=== PATIENT | male | born 1965 | race Caucasian/White ===

== ENCOUNTER 2018-10-15 19:04 | Inpatient (IN) | payer BC ==
[~2018-10-15 19:04] MED LIST: ISOVUE-370 76%-LOCM 1 ML ONE
[2018-10-15 19:47] LABS: #Basophils 0.1 thou/uL (0.0-0.2); #Eosinphils 0.4 thou/uL (0.0-0.7); #Lymphocytes 1.7 thou/uL (1.20-3.40); #Monocytes 1.1 thou/uL (0.11-0.59); #Neutrophils 9.1 thou/uL (1.40-6.50); %Eosinophils 3.6 % (0.0-10.0); %Lymphocytes 13.5 % (21.0-51.0); %Monocytes 8.5 % (0.0-10.0); %Neutrophils 73.4 % (42.0-75.0); Mean Corpuscular HGB CONC 31.9 g/dL (32.0-36.0); Mean Corpuscular Hemoglobin 26.5 pg (27.0-31.0); Mean Platelet Volume 7.4 fL (7.4-10.4); Platelet Count 469 thou/uL (130-400); RBC Distribution Width 12.3 % (11.5-14.5); Red Blood Cell (RBC) Count 4.15 mill/uL (4.70-6.10); White Blood Cell (WBC) Count 12.3 thou/uL (4.8-10.8)
[2018-10-15 20:04] LABS: ALT (SGPT) 71 U/L (8-55); AST (SGOT) 84 U/L (5-34); Alkaline Phosphatase 68 U/L (40-150); Anion Gap 16 mmol/L (10-20); BUN (Urea Nitrogen) 43 mg/dL (8.4-25.7); Bilirubin, Total 0.5 mg/dL (0.2-1.2); CK (CPK) 58 U/L (30-200); Calc. Creatinine Clearance 0 mL/min (70-130); Carbon Dioxide 29 mmol/L (22-29); Chloride 95 mmol/L (98-107); Estimated GFR-MDRD 22; Globulin 3.4 g/dL (2.4-3.5); Glucose 72 mg/dL (70-105); Lipase 13 U/L (8-78); Potassium 4.6 mmol/L (3.5-5.1); Protein, Total 7.4 g/dL (6.0-8.3); Sodium 135 mmol/L (136-145)
--- NOTE | 2018-10-15 20:25 | RAD ---
CHEST ONE VIEW: Indication: Chest pain. FINDINGS: There is moderate right pleural effusion with right basilar airspace opacity. There is subsegmental v olume loss within the right upper lobe. Left lung is clear. Heart size is normal. No acute osseous ab normality is evident. IMPRESSION: Right basilar airspace opacity with right sided pleural effusion. Recommend correlation for pneumonia . Left lung is clear. There is subsegmental volume loss within the right upper lobe. POS: H
[2018-10-15 20:35] LABS: CKMB 1.2 ng/mL (0-6.6)
[2018-10-15 20:39] LABS: Prothrombin Time 13.5 SEC (12.0-14.7)
[2018-10-15 20:41] LABS: PTT 21.7 SEC (22.9-36.1)
--- NOTE | 2018-10-15 20:47 | CT ---
CTA OF THE THORAX UTILIZING IV CONTRAST AND 3D REFORMATTED IMAGING: Indication: Shortness of breath, right leg swelling. Comparison: None. FINDINGS: There is a moderate to large right pleural effusion. There is partially occlusive thrombus seen within lobar and segmental ranches of the right lower lobe and right middle lobe. There is volume loss within the right lung base. There is extensive adenopathy of the mediastinum. There is enlargement of internal mammillary lymph n odes. There are prevascular lymph nodes seen measuring 1.3 cm. There is a left hilar lymph node measu ring 1.4 cm. Subcarinal lymph node is seen measuring 1.4 cm. There is an enlarged right pericardial l ymph node measuring 5.6 x 4.1 cm. There is extensive adenopathy of the retrocrural space. There is ex tensive adenopathy of the upper retroperitoneum. There is a large soft tissue mass involving the superior pole of the right kidney measuring 6.3 cm. T here is extensive soft tissue mass within the posterior right perirenal space displacing the right ki dney anteriorly. There is mass like prominence of lymph nodes seen surrounding the aorta, IVC, and mesenteric root wit hin the upper abdomen. The spleen is enlarged measuring 14 cm. Suspected focal fatty infiltration is seen near the falciform ligament. A small subcentimeter hypoden sity is seen within the right hepatic dome, suspicious for a small cyst. This measures 9 mm in size. No acute osseous abnormality is evident. IMPRESSION: 1. Partially occlusive lobar and segmental pulmonary emboli of the right lower lobe and right middle lobe without evidence of right heart dysfunction. There is a moderate right pleural effusion. 2. Extensive adenopathy of the thorax and upper abdomen. There is suspected soft tissue mass involvin g the superior pole of the right kidney. There is extensive soft tissue density seen within the poste rior right perirenal space. The soft tissue mass may reflect lymphomatous involvement of the right ki dney; however, a primary renal malignancy with diffuse metastatic disease cannot be entirely excluded . Discussion was held with Dr. Salas in the Emergency Department. Would recommend a delay of 24 hours to allow the performance of a multiphase CT examination of the abdomen and pelvis with and without I V contrast to further assess the presence of a primary right renal lesion or possibly lymphomatous in volvement of the perirenal space and right kidney. This can be performed as a CT of the abdomen and p karla with and without contrast utilizing a three phase examination. (Noncontrast, arterial, nephrogr aphic and delayed phase). 3. Splenomegaly. 4. Right hepatic lobe cyst and fatty infiltration of the liver. Code CR POS: [facility]
[2018-10-15] MEDS ORDERED: Furosemide 40 MG/4 ML VIAL ONE (20:49)
[2018-10-15] MEDS ORDERED: Morphine 4 MG/ML VIAL ONE (20:51)
[2018-10-15 20:54] LABS: Calcium Greater than 17.0 mg/dL (7.8-10.44)
[2018-10-15] MEDS ORDERED: Heparin 25,000 units/D5W 500 ML ONE (21:23)
[2018-10-15] MEDS ORDERED: Calcitonin,Salmon,Synthetic 200 UNITS/ML SC SCH (21:30)
[2018-10-15] MEDS ORDERED: Zoledronic Acid 4 MG in Sodium Chloride 0.9% 100 ML IVPB SCH (21:30)
[2018-10-15] MEDS ORDERED: Heparin 1,000 UNITS/ML VIAL ONE ×2 (21:51→21:52)
--- NOTE | 2018-10-15 23:24 | ULT ---
DOPPLER VENOUS ULTRASOUND OF THE RIGHT LOWER EXTREMITY: Indication: Edematous changes of the right lower extremity. TECHNIQUE: Linares scale, color Doppler, and vascular duplex with spectral analysis was performed of the deep venou s structures of both lower extremities. The common femoral vein, superficial femoral vein, popliteal vein, posterior tibial vein, proximal greater saphenous, and proximal profunda veins were assessed bi laterally. FINDINGS: There is normal compression, flow, and augmentation seen within the deep venous structures of the rig ht lower extremity. IMPRESSION: No evidence of DVT within the right lower extremity. POS: MARY
--- NOTE | 2018-10-16 01:01 | CON ---
DATE OF CONSULTATION: 10/15/2018 REASON FOR CONSULTATION: Severe hypercalcemia. IMPRESSION: 1. Severe hypercalcemia. 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 2. Acute kidney injury related to problem #1. 3. Deep venous thrombosis with pulmonary embolism, all related to potential malignant activity. PLAN: 1. The main focus at this point will be to bring the calcium down. Therefore, the patient received zoledronic acid as well as calcitonin and now, we will continue with aggressive IV fluid resuscitation with less discomfort. 2. Renally dose all medications for low GFR. 3. Avoid potentially nephrotoxic agents. 4. Further management to be dependent on the clinical course. HISTORY OF PRESENT ILLNESS: A 53-year-old gentleman with no significant past medical history, in fact has no visiting physicians, who kept complaining of back pain that has not responded well to intrathecal injection. Also, the patient developed nausea, abdominal discomfort, and slowing of speech. The patient has been constipated for about 2 to 3 days now. As a result of these findings, decision was taken to bring the patient, where clinical evaluation revealed calcium greater than 17, leg swelling, CAT scan consistent with pulmonary embolism. Decision was then taken to involve Renal in the management of this case. PAST MEDICAL HISTORY: Pretty much unremarkable. MEDICATIONS: None. ALLERGIES: NO KNOWN DRUG ALLERGIES. FAMILY HISTORY: No family history of kidney disease. SOCIAL HISTORY: The patient is . No alcohol. No tobacco. No illicit drug use. REVIEW OF SYSTEMS: As documented in the body of the history. All other systems were reviewed and found not to be significantly related to presenting illness. LABORATORY INVESTIGATION: Significant for calcium recorded as greater than 17, creatinine of 2.96, BUN of 43. SUMMARY: A 53-year-old, otherwise healthy gentleman, who presented here with leg swelling, slurred speech and shortness of breath, now been diagnosed with severe hypercalcemia. Thank you for this consultation. We will follow with you. Job ID: [id number]
[2018-10-16 01:19] LABS: ALT (SGPT) 68 U/L (8-55); AST (SGOT) 75 U/L (5-34); Albumin 3.6 g/dL (3.5-5.0); Alkaline Phosphatase 62 U/L (40-150); Anion Gap 16 mmol/L (10-20); BUN (Urea Nitrogen) 41 mg/dL (8.4-25.7); Bilirubin, Total 0.4 mg/dL (0.2-1.2); Calc. Creatinine Clearance 39 mL/min (70-130); Calcium 15.6 mg/dL (7.8-10.44); Carbon Dioxide 25 mmol/L (22-29); Chloride 98 mmol/L (98-107); Estimated GFR-MDRD 23; Globulin 3.1 g/dL (2.4-3.5); Glucose 70 mg/dL (70-105); Potassium 4.4 mmol/L (3.5-5.1); Protein, Total 6.7 g/dL (6.0-8.3); Sodium 135 mmol/L (136-145)
[2018-10-16] MEDS ORDERED: Morphine 4 MG/ML VIAL SLOW IVP PRN (02:32)
[2018-10-16] MEDS: Sodium Chloride 0.9% 1,000 ML IV SCH ×7 (03:45→21:46)
[2018-10-16] MEDS ORDERED: Bisacodyl 10 MG SUPP PR PRN (05:45)
[2018-10-16] MEDS ORDERED: Calcium Carbonate 500 MG ChewTAB PO PRN (05:47)
[2018-10-16] MEDS ORDERED: Ondansetron ODT 4 MG TAB PO PRN (05:47)
[2018-10-16] MEDS ORDERED: Heparin 10,000 UNITS/ 10 ML VIAL SLOW IVP SCH (06:00)
[2018-10-16 06:17] LABS: ALT (SGPT) 73 U/L (8-55); AST (SGOT) 77 U/L (5-34); Albumin 3.6 g/dL (3.5-5.0); Alkaline Phosphatase 63 U/L (40-150); Anion Gap 17 mmol/L (10-20); BUN (Urea Nitrogen) 42 mg/dL (8.4-25.7); Bilirubin, Total 0.4 mg/dL (0.2-1.2); Calc. Creatinine Clearance 38 mL/min (70-130); Carbon Dioxide 26 mmol/L (22-29); Chloride 96 mmol/L (98-107); Estimated GFR-MDRD 23; Globulin 3.3 g/dL (2.4-3.5); Glucose 90 mg/dL (70-105); Potassium 4.3 mmol/L (3.5-5.1); Protein, Total 6.9 g/dL (6.0-8.3); Sodium 135 mmol/L (136-145)
--- NOTE | 2018-10-16 06:19 | HP ---
PRIMARY CARE PHYSICIAN: Briana Clifford MD CHIEF COMPLAINT: Low back pain. HISTORY OF PRESENT ILLNESS: The patient is a 53-year-old male with no significant past medical history. He presented to the emergency room with above complaints. Over the last two months, the patient has on and off low back pain that is progressively getting worse. He was evaluated by Dr. Powell, Neurosurgery, as well as Pain Clinic. His pain progressively got worse. Today, he was found to have slurriness of speech along with confusion, dizziness, and right lower extremity swelling. He was brought in by his family due to this reason. He also gets short of breath on moderate exertion over the last 2 to 3 weeks. He had some headache, which has resolved. PAST MEDICAL HISTORY: Reviewed with the patient and none. PAST SURGICAL HISTORY: Reviewed with the patient and none. SOCIAL HISTORY: The patient currently lives at home with his family. No smoking, alcohol, or drug use, FAMILY HISTORY: Negative for heart disease. REVIEW OF SYSTEMS: All other review of systems were reviewed and were found negative. PHYSICAL EXAMINATION: VITAL SIGNS: In the emergency room showed temperature 97.9, respirations 20, pulse of 133, blood pressure of 200/114, O2 saturation 92% on room air. GENERAL: A 53-year-old male, in no apparent distress. Mentation slowly improving. His speech is clearing. HEENT: Head, atraumatic, normocephalic. Sclerae anicteric. Moist mucous membranes. No oral lesion. NECK: Supple. No JVD appreciated. No carotid bruit. LUNGS: Clear to auscultation bilaterally with diminished air entry at bilateral bases. HEART: S1 and S2 present. Regular rate and rhythm. Tachycardic. No heaves or pulsation. ABDOMEN: Soft with mild tenderness over the right upper quadrant. No rebound or guarding. No costovertebral angle tenderness. EXTREMITIES: Right ankle swelling compared to the other. No calf tenderness. SKIN: Warm and dry. LYMPH NODE: No palpable lymph nodes in the neck. PERIPHERAL VASCULAR: Radial pulses palpable bilaterally. MUSCULOSKELETAL: No joint swelling, or tenderness. LABORATORY FINDINGS: Calcium greater than 17 with sodium 135, potassium 4.6, chloride 95, bicarb 29, BUN 43, creatinine 2.96, baseline creatinine unavailable. Troponin 0.031, CK-MB 1.2. WBC 12.3 with hemoglobin 11, hematocrit 34.5, platelet 469. PT/INR in normal range. D-dimer was 3.98. CT angiogram of the chest showed pulmonary embolism in the right lower lobe and the right middle lobe without evidence of right heart dysfunction. There was moderate right-sided pleural effusion. There was extensive adenopathy of thorax and upper abdomen with a suspected soft tissue mass involving the superior pole of the right kidney. EKG by my review showed sinus tachycardia. Chest x-ray by my review showed right-sided pleural effusion. IMPRESSION: 1. Toxic metabolic encephalopathy due to severe hypercalcemia. 2. Acute kidney injury secondary to toxic metabolic encephalopathy. 3. Pulmonary embolism. 4. Sinus tachycardia due to dehydration. 5. Elevated troponins due to demand ischemia. 6. Abnormal LFTs. 7. Anemia, normocytic. 8. Elevated D-dimer. 9. Obesity with a BMI of 33.3. 10. Constipation due to hypercalcemia. 11. Hyponatremia. 12. Low back pain of 3 months' duration. 13. Soft tissue mass in the superior pole of the right kidney. 14. Splenomegaly. 15. Right-sided pleural effusion. PLAN: The patient will be monitored in the intermediate care unit. We will continue IV normal saline at 200 mL an hour. The patient has been seen by Nephrology, Dr. Valdes. We will continue Lasix 40 mg daily per Nephrology. He received zoledronic acid 4 mg in the ER along with calcitonin. We will give him another dose of calcitonin. We will recheck labs later today. Treat constipation. We will add antihypertensives. Oncology consultation. Plan of care was discussed with the patient and the family at the bedside. They stated understanding. Job ID: [id number]
[2018-10-16 06:23] LABS: Calcium 15.2 mg/dL (7.8-10.44)
[2018-10-16 07:32] LABS: Hemoglobin 9.8 g/dL (14.0-18.0); Platelet Count 436 thou/uL (130-400)
--- NOTE | 2018-10-16 08:02 | CT ---
CT OF THE BRAIN WITHOUT CONTRAST: INDICATION: Slurred speech, confusion, dizziness. COMPARISON: None. FINDINGS: No acute infarct, hemorrhage, or hydrocephalus is present. No midline shift is evident. Mastoid air cells and paranasal sinuses are clear. The skull is intact. IMPRESSION: No acute intracranial abnormality. POS: BH
[2018-10-16] MEDS: Furosemide 40 MG/4 ML VIAL SLOW IVP SCH (08:26)
[2018-10-16] MEDS: Amlodipine 5 MG TAB PO SCH (08:27)
[2018-10-16] MEDS ORDERED: Senokot S 8.6-50 MG TAB PO SCH (09:00)
[2018-10-16] MEDS ORDERED: Polyethylene Glycol 3350 17 GM Packet PO SCH (09:00)
[2018-10-16] MEDS: Ondansetron PF 4 MG/2 ML Vial IVP PRN (09:54)
[2018-10-16] MEDS ORDERED: Calcitonin,Salmon,Synthetic 200 UNITS/ML SC SCH ×2 (10:00→11:30)
[2018-10-16] MEDS: Heparin 25,000 units/D5W 500 ML IVPB SCH (10:47)
[2018-10-16] MEDS: Labetalol HCl 100 MG/20 ML VIAL SLOW IVP PRN ×2 (10:50→21:47)
[2018-10-16] MEDS ORDERED: Magnesium Citrate 300 ML BOT PO SCH (13:30)
--- NOTE | 2018-10-16 17:07 | MRI ---
BRAIN MRI WITHOUT CONTRAST: Reference made to head CT same date. Indication: Altered mental status. History of renal cancer. FINDINGS: Ventricular system is normal in size. No mass effect, midline shift, or acute territorial infarction. Motion artifact is present which limits evaluation. No parenchymal hemorrhagic susceptibility is pre sent. The visualized skull base flow voids are grossly patent within limitations. IMPRESSION: No acute territorial infarction or mass effect. POS: AM[facility]
--- NOTE | 2018-10-16 17:24 | ULT ---
LEFT LOWER EXTREMITY VENOUS DUPLEX EXAM: Technique: Deep veins of left lower extremity evaluated with spectral analysis and color doppler. Indications: Left lower extremity pain and edema. FINDINGS: Veins of the left lower extremity show normal blood flow and compression. No evidence of DVT. IMPRESSION: Normal left extremity venous duplex exam. POS: MARY
[2018-10-16 17:28] LABS: Anion Gap 16 mmol/L (10-20); BUN (Urea Nitrogen) 43 mg/dL (8.4-25.7); Calc. Creatinine Clearance 41 mL/min (70-130); Carbon Dioxide 25 mmol/L (22-29); Chloride 97 mmol/L (98-107); Estimated GFR-MDRD 24; Glucose 111 mg/dL (70-105); Potassium 4.3 mmol/L (3.5-5.1); Sodium 134 mmol/L (136-145); Uric Acid 12.6 mg/dL (3.5-7.2)
[2018-10-16 17:34] LABS: Calcium 13.5 mg/dL (7.8-10.44)
--- NOTE | 2018-10-16 18:49 | PDOC.PN ---
- Subjective Encounter Start Date: 10/16/18 Encounter Start Time: 18:49 Subjective: Complaining of constipation. SOB and poor appetite persists. -: Still on heparin infusion. - Objective Resuscitation Status - Order Detail: 10/16/18 05:47 Resuscitation Status Routine Resuscitation Status: FULL: Full Resuscitation Vital Signs & Weight: Vital Signs (12 hours) Temp Pulse BP Pulse Ox 10/16/18 12:00 98.4 F 10/16/18 10:50 113 H 182/119 H 10/16/18 08:27 113 H 148/118 H 10/16/18 08:00 98.8 F 93 L 10/16/18 07:31 94 L Weight Admit Weight 206 lb Weight 206 lb 5.643 oz Most Recent Monitor Data Heart Rate from ECG 119 NIBP 151/104 NIBP BP-Mean 119 Respiration from ECG 22 SpO2 99 I&O: 10/15/18 10/16/18 10/17/18 06:59 06:59 06:59 Intake Total 1170 1680 Output Total 400 1915 Balance 770 -235 Result Diagrams: 10/16/18 06:59 10/16/18 16:55 Phys Exam - Physical Examination HEENT: PERRLA, moist MMs Neck: supple, full ROM Decrease air entry right base. Regular but tachycardic Gastrointestinal: non-tender full or enlarged. moderate bilateral leg edema Neurological: non-focal, moves all 4 limbs Dx/Plan (1) Leg DVT (deep venous thromboembolism), acute Code(s): I82.409 - ACUTE EMBOLISM AND THOMBOS UNSP DEEP VN UNSP LOWER EXTREMITY Status: Acute (2) Acute pulmonary embolism Code(s): I26.99 - OTHER PULMONARY EMBOLISM WITHOUT ACUTE COR PULMONALE Status : Acute (3) Hypercalcemia of malignancy Code(s): E83.52 - HYPERCALCEMIA Status: Acute (4) DEVIKA (acute kidney injury) Code(s): N17.9 - ACUTE KIDNEY FAILURE, UNSPECIFIED Status: Acute (5) Pleural effusion on right Code(s): J90 - PLEURAL EFFUSION, NOT ELSEWHERE CLASSIFIED Status: Acute (6) Right kidney mass Code(s): N28.89 - OTHER SPECIFIED DISORDERS OF KIDNEY AND URETER Status: Acute (7) Retroperitoneal lymphadenopathy Code(s): R59.0 - LOCALIZED ENLARGED LYMPH NODES Status: Acute (8) Mediastinal adenopathy Code(s): R59.0 - LOCALIZED ENLARGED LYMPH NODES Status: Acute (9) Acute anoxic encephalopathy Code(s): G93.1 - ANOXIC BRAIN DAMAGE, NOT ELSEWHERE CLASSIFIED Status: Acute (10) Physical deconditioning Code(s): R53.81 - OTHER MALAISE Status: Acute (11) Metastatic cancer Code(s): C79.9 - SECONDARY MALIGNANT NEOPLASM OF UNSPECIFIED SITE Status: Acute - Plan Continue IV heparin, IVF and lasix -: Give dulcolax suppository. Monitor CMP and CBC -: Analgesic and antiemetic as needed -: Consult Pulm for possinle thoracentessis and or bronchoscopy with biopsy -: Oncology and Nephrology following. * .
[2018-10-16] MEDS ORDERED: Bisacodyl 10 MG SUPP PR SCH (19:00)
--- NOTE | 2018-10-16 19:39 | PRG ---
DATE OF SERVICE: 10/16/2018 SUBJECTIVE: The patient is seen and examined. Sleepy, but arousable. Noted with the following vital signs. OBJECTIVE: VITAL SIGNS: Heart rate of 119 to 132, respiratory rate of 22. GENERAL: Hemodynamically stable. HEENT: Reveal some dry mucosa. CARDIOVASCULAR SYSTEM: First and second heart sounds were heard. RESPIRATORY SYSTEM: Clear to auscultation. DIGESTIVE SYSTEM: Reveals slightly distended abdomen. EXTREMITIES: Show right-sided edema. LYMPHATICS: No peripheral lymphadenopathy. LABORATORY INVESTIGATION: Showed a calcium level that has gone down to 15.2, creatinine 2.9, and BUN of 42. IMPRESSION: 1. 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 2. Acute kidney injury, likely related to hypercalcemia defect. Contrast nephropathy not yet manifested. PLAN: 1. We will continue with current renal supportive measures. 2. Continue IV fluid with normal saline and Lasix. 3. Further management will be dependent on the clinical course as well as further findings. We will continue to renally dose all medications for low GFR and avoid potentially nephrotoxic agents in this patient. Job ID: [id number]
[2018-10-16] MEDS: Acetaminophen 325 MG TAB PO PRN (21:50)
--- NOTE | 2018-10-16 22:28 | CON ---
DATE OF CONSULTATION: REASON FOR CONSULT: Lymphadenopathy and renal mass. HISTORY OF PRESENT ILLNESS: Mr. Tapia is a 53-year-old gentleman with no medical history, who presented to the emergency room with complaints of low back pain, confusion. His pain started in mid August. He has been evaluated by Neurosurgery and Pain Clinic in the outpatient setting. Over the past 2 to 3 days, he began to have more confusion and has been dropping things. He has also complained of shortness of breath. In the emergency room, he underwent a chest x-ray, which showed a right-sided pleural effusion. He then underwent a chest and thorax CT angiogram, which showed a moderate to large right pleural effusion, a partially occlusive thrombus within the lobar and segmental branches of the right lower lobe and right middle lobe. There was extensive adenopathy of the mediastinum. Left hilar lymph node measuring 1.4 cm, subcarinal lymph node measuring 1.4 cm, enlarged right pericardial lymph node measuring 5.6 x 4.1 cm. There was adenopathy of the upper retroperitoneum. There was a large soft tissue mass involving the superior pole of the right kidney measuring 6.3 cm. There was extensive soft tissue mass within the posterior right perirenal space displacing the right kidney anterior. There were mass like prominence of lymph nodes around the aorta, IVC, and mesenteric root within the upper abdomen. His spleen measured 14 cm. The patient was admitted for pulmonary emboli and started on heparin drip. The patient's calcium in the emergency room was greater than 17. He received a dose of Zometa and calcitonin. He was started on IV fluids. His creatinine was elevated at 2.96. We were asked to see the patient with assistance with diagnosis. PAST MEDICAL HISTORY: Back pain over the last several months. PAST SURGICAL HISTORY: None. ALLERGIES: NO KNOWN DRUG ALLERGIES. HOME MEDICATIONS: 1. Tylenol No. 3 p.r.n. 2. Gabapentin 300 mg daily. 3. Metaxalone 800 mg t.i.d. FAMILY HISTORY: Grandmother with breast cancer. Uncle with colon cancer. SOCIAL HISTORY: He is . Has several children. No smoking, alcohol, or illicit drug use. REVIEW OF SYSTEMS: A 10-point review of systems is positive for confusion and shortness of breath. PHYSICAL EXAMINATION: VITAL SIGNS: Temperature is 98.4, pulse is 114, respiratory rate 22, blood pressure is 182/119. GENERAL: Well-developed, well-nourished male, in no acute distress. HEENT: Normocephalic, atraumatic. Pupils equal and reactive to light. NECK: Supple. CARDIOVASCULAR: Regular rate and rhythm. LUNGS: Clear. ABDOMEN: Soft, nontender. Bowel sounds are positive. EXTREMITIES: He has 1+ bilateral lower extremity edema. SKIN: No rash. HEMATOLOGICAL: No petechiae or purpura. NEUROLOGICAL: The patient has right lower extremity weakness. PSYCHIATRIC: The patient is oriented. PERTINENT LABS AND X-RAYS: Current WBCs are 12.3, hemoglobin 9.8, hematocrit 30.1, platelet count is 436,000. He has 73% neutrophils, 13% lymphocytes. PT is 13.5 , INR is 1.0, and PTT is 21.7. Sodium is 135, potassium 4.3, chloride 96, CO2 is 26, BUN is 42, creatinine 2.93, calcium is 15.2, total bilirubin is 0.4, AST 77, ALT 73, alkaline phosphatase is 63, CK-MB is 1.2. BNP is 14.2. Serum total protein is 6.9, albumin 3.6, globulin 3.3, and lipase is 13. ASSESSMENT: 1. Severe hypercalcemia. 2. Toxic metabolic encephalopathy. 3. Pulmonary embolism. 4. Acute kidney injury. 5. Soft tissue mass of the right kidney. 6. Extensive lymphadenopathy of the chest and abdomen. DISCUSSION: The patient's high calcium has improved from greater than 17 to 15.2. We will continue IV fluids and calcitonin. He had only received Zometa every 7 days. We will monitor that very closely. His mental status has improved mildly with improvement of his calcium. There was no evidence of metastatic disease on his brain CT, but agree with MRI of his brain to further evaluate and rule out metastatic disease. The patient's acute kidney injury precludes any contrast to further evaluate the kidney mass. He will be anticoagulated with IV heparin over the next several days and ultimately a tissue biopsy will be obtained from both the kidneys and mediastinal lymphadenopathy. I will check a flow cytometry, uric acid, LDH, and a PTH to be complete. Further recommendations will be based on the results of all these testing. The case was discussed with Dr. Vargas. Thank you for the consult. Job ID: [id number] [facility]
--- NOTE | 2018-10-16 22:33 | CON ---
DATE OF CONSULTATION: 10/16/2018 HISTORY OF PRESENT ILLNESS: Glenn Tapia is a 53-year-old male who has been dealing with back pain since beginning of the year. He presented with confusion, it has been going on for several days with calcium like greater than 17. His calcium trending downward. I was consulted because of his presence in the ICU. Unfortunately, he has also been found to have a right-sided pleural effusion and evidence of thromboembolic disease on the CT pulmonary angiogram as well as evidence of mediastinal and abdominal lymphadenopathy and what appears to be a right superior pole renal mass. He had a negative brain CT, but this was without contrast. His does not want him to get any more contrast because of his renal insufficiency and explained to her that we will avoid it for now. He has been healthy up until this illness and was actually snow skiing at the beginning of the year. PAST MEDICAL HISTORY: Otherwise, unremarkable. FAMILY HISTORY: Negative for lung disease in early age. SOCIAL HISTORY: He is not a smoker, not a daily drinker. He has no history of weight loss , gross hematuria. REVIEW OF SYSTEMS: 10 point review of systems completed, otherwise negative. PHYSICAL EXAMINATION: GENERAL: He presented with confusion, it has been going on for several days with calcium like greater than 17. VITAL SIGNS: Heart rate 114, respiratory rates in the 20s, oximetry is 92%. HEENT: Pupils are equal. Sclerae is anicteric. LYMPH: I do not palpate cervical, supraclavicular, or axillary lymphadenopathy. LUNGS: Remarkable for decreased breath sounds at his left and right base. HEART: Regular rhythm. S1 and S2 are normal. ABDOMEN: Soft and nontender without guarding. EXTREMITIES: Without clubbing, cyanosis, or edema. LABORATORY DATA: White count is 12.3 yesterday, hemoglobin 9.8 today, and platelets 436. Sodium 135, potassium 4.3, chloride 96, bicarb 26, BUN 42, and creatinine 2.93. Calcium is down to 15.2. AST 77 and ALT 73. IMPRESSION: Thromboembolic disease. I suppose this could be a tumor embolus if he does have a renal carcinoma, but probably it is more likely that this is simply a deep venous thrombosis with pulmonary embolism. With this severe hypercalcemia, this has to be a malignant process. It is unusual for lymphoma to cause hypercalcemia, but I suppose it is possible. At this point in time, we need to continue with hydration, allow his calcium to come down and continue to anticoagulate him with heparin. Once he has been anticoagulated for several days, we can consider some type of surgical biopsy. I have on-call to consult the Oncology, they will come by today and I have also logistics solution manager to consult CT surgery for recommendations. It would be easy enough to do a thoracentesis at the bedside, but we would have to wait 2 days for the pathology and I suspect the more tissue we get the better off will be as far as making treatment recommendations. His pleural effusion , also could be related to thromboembolic disease or could be related to an undiagnosed problem with his heart. Since he is being anticoagulated, I would recommend that we do an MRI of his brain with and without contrast. We hate to continue anticoagulation if he has large brain metastases that might be predisposed to hemorrhage. CRITICAL CARE TIME: 45 minutes, I met with family and answered all their questions. Job ID: [id number] NIKKO
[2018-10-17] MEDS: Heparin 25,000 units/D5W 500 ML IVPB SCH (01:10)
[2018-10-17] MEDS: Sodium Chloride 0.9% 1,000 ML IV SCH ×5 (01:10→21:05)
--- NOTE | 2018-10-17 02:15 | CON ---
DATE OF CONSULTATION: 10/16/2018 REASON FOR CONSULTATION: Evaluate the patient with adenopathy, hypercalcemia, and mental status changes. HISTORY OF PRESENT ILLNESS: Mr. Tapia is a 53-year-old gentleman who presented with mental status changes to the emergency department yesterday. He was found on CT scan to have a right pleural effusion. He also has a pulmonary embolus seen on CT angiogram of his chest. In addition, there was extensive adenopathy involving the paratracheal and subcarinal areas in his chest. He has either a renal mass or adenopathy around his right kidney. His presenting symptom was confusion. His calcium at the time of admission was 15.6. Most recent check, it is now 13.5 with medical treatment. He also complains of a 2-month history of back pain centrally located in his thoracic and lumbar spine. Venous ultrasound showed no deep venous thrombosis. Dr. Wilson called and asked me to look at him from the aspect of potentially performing a mediastinoscopy for mediastinal lymph node biopsy for diagnostic purposes. Currently, the patient is almost asleep when I arrived. He is fairly somnolent and falls asleep easily while we were talking. PAST MEDICAL HISTORY: None. PAST SURGICAL HISTORY: None. SOCIAL HISTORY: He does not use tobacco or alcohol. He is REVIEW OF SYSTEMS: Not performed due to the patient's somnolence. Most of the interview came through his PHYSICAL EXAMINATION: GENERAL: This is a well-developed, well-nourished male, resting in bed without complaint. VITAL SIGNS: His temperature is 98.4, heart rate is 110, blood pressure is 148/ 100. HEENT: Sclerae nonicteric. Pupils are equal and round bilaterally. NECK: Supple. There is no palpable adenopathy in his neck or his supraclavicular fossa. CHEST: Clear with depressed breath sounds in the right lower lung johnson. HEART: Rhythm is regular. ABDOMEN: Soft and nontender. EXTREMITIES: There is no edema. VASCULAR: Palpable carotid, radial, and femoral pulses bilaterally. RADIOLOGY: I have reviewed his CT scans and MRIs. Most recent MRI of the brain is negative. CT scan of the chest is as above. ASSESSMENT AND PLAN: Hypercalcemia with confusion in the face of right pleural effusion and adenopathy throughout his chest and upper abdomen, right renal mass. He also has back pain. Dr. Wilson and I have discussed his current situation. He is being treated with heparin for pulmonary embolus currently. Thoracentesis may be beneficial for diagnostic purposes initially. If it is felt that he needs a mediastinoscopy, this is certainly possible. He has 2 level 7 nodes which would be approachable via mediastinoscopy. Another option may be percutaneous biopsy of a vertebral body lesion if that is what is causing his back pain. Once he can lay still enough that we can get an MRI that would certainly help from a diagnostic standpoint. Job ID: [id number] [facility] NETWORKCarlota
[2018-10-17] MEDS ORDERED: Morphine 4 MG/ML VIAL SLOW IVP SCH (03:00)
[2018-10-17 03:52] LABS: #Basophils 0.1 thou/uL (0.0-0.2); #Eosinphils 0.2 thou/uL (0.0-0.7); #Lymphocytes 1.6 thou/uL (1.20-3.40); #Monocytes 1.1 thou/uL (0.11-0.59); #Neutrophils 10.7 thou/uL (1.40-6.50); %Basophils 0.6 % (0.0-1.0); %Eosinophils 1.4 % (0.0-10.0); %Lymphocytes 11.8 % (21.0-51.0); %Monocytes 8.1 % (0.0-10.0); %Neutrophils 78.2 % (42.0-75.0); Hemoglobin 8.9 g/dL (14.0-18.0); Mean Corpuscular HGB CONC 32.6 g/dL (32.0-36.0); Mean Corpuscular Hemoglobin 26.6 pg (27.0-31.0); Mean Corpuscular Volume 81.6 fL (78.0-98.0); Mean Platelet Volume 6.5 fL (7.4-10.4); Platelet Count 335 thou/uL (130-400); RBC Distribution Width 12.4 % (11.5-14.5); Red Blood Cell (RBC) Count 3.33 mill/uL (4.70-6.10); White Blood Cell (WBC) Count 13.7 thou/uL (4.8-10.8)
[2018-10-17 04:16] LABS: ALT (SGPT) 52 U/L (8-55); AST (SGOT) 39 U/L (5-34); Albumin 3.2 g/dL (3.5-5.0); Alkaline Phosphatase 54 U/L (40-150); Anion Gap 13 mmol/L (10-20); BUN (Urea Nitrogen) 41 mg/dL (8.4-25.7); Bilirubin, Total 0.4 mg/dL (0.2-1.2); Calc. Creatinine Clearance 44 mL/min (70-130); Calcium 11.9 mg/dL (7.8-10.44); Carbon Dioxide 26 mmol/L (22-29); Chloride 98 mmol/L (98-107); Estimated GFR-MDRD 26; Globulin 2.8 g/dL (2.4-3.5); Glucose 93 mg/dL (70-105); Sodium 133 mmol/L (136-145)
[2018-10-17] MEDS: Labetalol HCl 100 MG/20 ML VIAL SLOW IVP PRN (06:40)
--- NOTE | 2018-10-17 08:32 | PDOC.PN ---
- Subjective Encounter Start Date: 10/17/18 Encounter Start Time: 08:30 Subjective: Complqaining of persistent moderately severe back pain. -: mental status has improved greatly. -: has had several BM overnight. - Objective Resuscitation Status - Order Detail: 10/16/18 05:47 Resuscitation Status Routine Resuscitation Status: FULL: Full Resuscitation Vital Signs & Weight: Vital Signs (12 hours) Temp Pulse BP 10/17/18 07:13 97.8 F 10/17/18 06:40 99 183/111 H 10/17/18 03:51 97.6 F 10/17/18 00:00 98.6 F 10/16/18 21:47 115 H 190/104 H Weight Admit Weight 206 lb Weight 212 lb Most Recent Monitor Data Heart Rate from ECG 96 NIBP 188/86 NIBP BP-Mean 120 Respiration from ECG 19 SpO2 96 I&O: 10/16/18 10/17/18 10/18/18 06:59 06:59 06:59 Intake Total 1170 4808 Output Total 400 2565 Balance 770 2243 Result Diagrams: 10/17/18 03:43 10/17/18 03:43 Phys Exam - Physical Examination HEENT: PERRLA, moist MMs Neck: no JVD, supple fair air entry bilaterally. No distress Cardiovascular: RRR Gastrointestinal: soft, non-tender, no distention, positive bowel sounds moderate bilateral leg edema. No vertebral tenderness Neurological: non-focal, moves all 4 limbs Psychiatric: normal affect, A&O x 3 Dx/Plan (1) Acute pulmonary embolism Code(s): I26.99 - OTHER PULMONARY EMBOLISM WITHOUT ACUTE COR PULMONALE Status : Acute (2) Leg DVT (deep venous thromboembolism), acute Code(s): I82.409 - ACUTE EMBOLISM AND THOMBOS UNSP DEEP VN UNSP LOWER EXTREMITY Status: Acute (3) Hypercalcemia of malignancy Code(s): E83.52 - HYPERCALCEMIA Status: Acute (4) DEVIKA (acute kidney injury) Code(s): N17.9 - ACUTE KIDNEY FAILURE, UNSPECIFIED Status: Acute (5) Pleural effusion on right Code(s): J90 - PLEURAL EFFUSION, NOT ELSEWHERE CLASSIFIED Status: Acute (6) Right kidney mass Code(s): N28.89 - OTHER SPECIFIED DISORDERS OF KIDNEY AND URETER Status: Acute (7) Retroperitoneal lymphadenopathy Code(s): R59.0 - LOCALIZED ENLARGED LYMPH NODES Status: Acute (8) Mediastinal adenopathy Code(s): R59.0 - LOCALIZED ENLARGED LYMPH NODES Status: Acute (9) Acute anoxic encephalopathy Code(s): G93.1 - ANOXIC BRAIN DAMAGE, NOT ELSEWHERE CLASSIFIED Status: Acute Comment: Improved. seem to be back to baseline (10) Physical deconditioning Code(s): R53.81 - OTHER MALAISE Status: Acute (11) Metastatic cancer Code(s): C79.9 - SECONDARY MALIGNANT NEOPLASM OF UNSPECIFIED SITE Status: Acute Comment: Stage 4: ? lymphoma or Renal cell carcinoma. - Plan Continue IV heparin -: Continue IVF and lasix as per Nephrology -: Hold stool softeners given frequent loose stool -: Start MS contin and prn norco for back pain control. Diet as tolerated -: Appreciate Onco, CTS, Pulmo and Neph input. Biopsy planning in progress Care plan discussed with patient and spouse and both verbalized understanding. They shared their concern about contrast study due to possible further kidney damage * .
[2018-10-17] MEDS: Amlodipine 5 MG TAB PO SCH (08:42)
[2018-10-17] MEDS: Furosemide 40 MG/4 ML VIAL SLOW IVP SCH (08:42)
[2018-10-17] MEDS: Allopurinol 300 MG TAB PO SCH (08:42)
[2018-10-17] MEDS: Morphine ER 15 MG TAB PO SCH ×2 (10:05→21:02)
--- NOTE | 2018-10-17 17:09 | PRG ---
DATE OF SERVICE: 10/17/2018 SUBJECTIVE: Glenn Tapia says he is feeling better. He is much more lucid. OBJECTIVE: VITAL SIGNS: He is afebrile. Blood pressure 152/98, heart rate is 106, respiratory rate is 20. LUNGS: Remarkable for decreased breath sounds at the right base. HEART: Regular rhythm. ABDOMEN: Soft. LABORATORY DATA: White count 13.7, hemoglobin 8.9, platelets 355. Electrolytes are unremarkable. Creatinine is down to 2.55. IMPRESSION: 1. Hypercalcemia associated with malignancy. Calcium is down at 11.9. It will continue to fall. 2. Intravascular volume depletion with hypercalcemia. Given that the calcium is falling, I would discontinue the diuretic at this point since hydration is more of a priority now from a renal function standpoint. 3. Thromboembolic disease, anticoagulated with IV heparin. 4. Right pleural effusion. Probably tap his effusion first thing in the morning. I explained the risks of bleeding, infection, least likely lung collapse, and he is willing to proceed. We will try to do flow studies on his pleural fluid on the outside chance that this is lymphoma we are dealing with. Overall, he appears to be stable. I met with the and answered all of her questions. Job ID: [id number]
--- NOTE | 2018-10-17 20:45 | PRG ---
DATE OF SERVICE: 10/17/2018 SUBJECTIVE: The patient is seen and examined, seems to be much improved. Noted with the following vital signs. OBJECTIVE: VITAL SIGNS: Blood pressure 152/98 with a heart rate in the 100s, respiratory rate of 18. HEENT: Unremarkable. CARDIOVASCULAR SYSTEM: First and second heart sounds were heard. RESPIRATORY SYSTEM: Clear to auscultation. DIGESTIVE SYSTEM: Revealed benign abdomen. EXTREMITIES: No significant peripheral edema. LABORATORY INVESTIGATION: Showed a calcium that has come down to 11.9, creatinine 2.5, BUN of 41. IMPRESSION: 1. Severe hypercalcemia, likely paraneoplastic phenomenon. 2. Acute kidney injury, likely related to severe hypercalcemia with its attendant dehydration and possible nephrocalcinosis. 3. Deep venous thrombosis/pulmonary embolism. 4. Possible neoplastic disease, query type. PLAN: 1. The patient to continue with rehydration with normal saline. 2. At this level of calcium, it is okay to discontinue loop diuretic. 3. Renally dose all medications. 4. Avoid potentially nephrotoxic agents. The patient has gotten some contrast and will be better if avoided in this patient further contrast exposure unless absolutely needed. 5. Further management to be dependent on the clinical course. Job ID: [id number]
[2018-10-18] MEDS: Acetaminophen 325 MG TAB PO PRN ×2 (00:06→04:27)
[2018-10-18] MEDS: Sodium Chloride 0.9% 1,000 ML IV SCH ×4 (03:15→17:57)
[2018-10-18 04:08] LABS: #Basophils 0.1 thou/uL (0.0-0.2); #Eosinphils 0.4 thou/uL (0.0-0.7); #Lymphocytes 1.6 thou/uL (1.20-3.40); #Monocytes 1.3 thou/uL (0.11-0.59); %Basophils 0.5 % (0.0-1.0); %Eosinophils 2.6 % (0.0-10.0); %Lymphocytes 10.8 % (21.0-51.0); %Monocytes 9.1 % (0.0-10.0); %Neutrophils 76.9 % (42.0-75.0); Hemoglobin 8.4 g/dL (14.0-18.0); Mean Corpuscular HGB CONC 32.6 g/dL (32.0-36.0); Mean Corpuscular Hemoglobin 26.6 pg (27.0-31.0); Mean Corpuscular Volume 81.6 fL (78.0-98.0); Platelet Count 328 thou/uL (130-400); RBC Distribution Width 12.4 % (11.5-14.5); Red Blood Cell (RBC) Count 3.17 mill/uL (4.70-6.10); White Blood Cell (WBC) Count 14.3 thou/uL (4.8-10.8)
[2018-10-18 04:31] LABS: ALT (SGPT) 40 U/L (8-55); AST (SGOT) 30 U/L (5-34); Albumin 3.1 g/dL (3.5-5.0); Alkaline Phosphatase 51 U/L (40-150); Anion Gap 15 mmol/L (10-20); BUN (Urea Nitrogen) 33 mg/dL (8.4-25.7); Bilirubin, Total 0.4 mg/dL (0.2-1.2); Calc. Creatinine Clearance 52 mL/min (70-130); Calcium 10.5 mg/dL (7.8-10.44); Carbon Dioxide 23 mmol/L (22-29); Chloride 98 mmol/L (98-107); Estimated GFR-MDRD 31; Globulin 2.8 g/dL (2.4-3.5); Glucose 75 mg/dL (70-105); Protein, Total 5.9 g/dL (6.0-8.3); Sodium 132 mmol/L (136-145)
[2018-10-18] MEDS ORDERED: oxyCODONE 5 MG TAB PO PRN (08:20)
--- NOTE | 2018-10-18 08:24 | PDOC.PN ---
- Subjective Encounter Start Date: 10/18/18 Encounter Start Time: 08:22 Subjective: Poor sleep last night. Back pain persists. SOB worse with wheezing -: No Fever. For thoracentesis today - Objective Resuscitation Status - Order Detail: 10/16/18 05:47 Resuscitation Status Routine Resuscitation Status: FULL: Full Resuscitation Vital Signs & Weight: Vital Signs (12 hours) Temp Pulse Ox 10/18/18 07:18 98.0 F 10/18/18 06:41 92 L 10/18/18 04:00 97.4 F L 10/18/18 00:00 99.1 F Weight Admit Weight 206 lb Weight 212 lb Most Recent Monitor Data Heart Rate from ECG 109 NIBP 157/99 NIBP BP-Mean 118 Respiration from ECG 21 SpO2 93 I&O: 10/17/18 10/18/18 10/19/18 06:59 06:59 06:59 Intake Total 4808 6646 Output Total 2565 2680 Balance 2243 3966 Result Diagrams: 10/18/18 03:51 10/18/18 03:51 Phys Exam - Physical Examination HEENT: PERRLA, moist MMs Neck: supple fair air entry with transmitted sound and rhonchi. Regular rhythm but tachycardic. Gastrointestinal: positive bowel sounds Mildly enlarged. Non tender Mild bilateral leg edema Neurological: non-focal, moves all 4 limbs Psychiatric: A&O x 3 Dx/Plan (1) Acute respiratory failure with hypoxia Code(s): J96.01 - ACUTE RESPIRATORY FAILURE WITH HYPOXIA Status: Acute Comment: Due to pleural effusion, PE and atelectasis with possible congestion. (2) Metastatic cancer Code(s): C79.9 - SECONDARY MALIGNANT NEOPLASM OF UNSPECIFIED SITE Status: Acute Comment: Stage 4: ? lymphoma or Renal cell carcinoma. (3) Acute pulmonary embolism Code(s): I26.99 - OTHER PULMONARY EMBOLISM WITHOUT ACUTE COR PULMONALE Status : Acute (4) Leg DVT (deep venous thromboembolism), acute Code(s): I82.409 - ACUTE EMBOLISM AND THOMBOS UNSP DEEP VN UNSP LOWER EXTREMITY Status: Acute (5) Hypercalcemia of malignancy Code(s): E83.52 - HYPERCALCEMIA Status: Acute Comment: Improved. down from above 17 to 10.5 today (6) DEVIKA (acute kidney injury) Code(s): N17.9 - ACUTE KIDNEY FAILURE, UNSPECIFIED Status: Acute Comment: Related to cancer, hypercalcemia and hemodynamic factors due to hypercalcemia induced diuresis (7) Pleural effusion on right Code(s): J90 - PLEURAL EFFUSION, NOT ELSEWHERE CLASSIFIED Status: Acute (8) Right kidney mass Code(s): N28.89 - OTHER SPECIFIED DISORDERS OF KIDNEY AND URETER Status: Acute (9) Retroperitoneal lymphadenopathy Code(s): R59.0 - LOCALIZED ENLARGED LYMPH NODES Status: Acute (10) Mediastinal adenopathy Code(s): R59.0 - LOCALIZED ENLARGED LYMPH NODES Status: Acute (11) Acute anoxic encephalopathy Code(s): G93.1 - ANOXIC BRAIN DAMAGE, NOT ELSEWHERE CLASSIFIED Status: Acute Comment: Improved. seem to be back to baseline (12) Physical deconditioning Code(s): R53.81 - OTHER MALAISE Status: Acute (13) Anemia Code(s): D64.9 - ANEMIA, UNSPECIFIED Status: Acute Comment: Most likely due to chronic illness with some acute blood loss related to anticoagulation. Acute drop from 11 on admission to 8 currently mostly due to correction of hemoconcentration with IVF (14) Constipation Code(s): K59.00 - CONSTIPATION, UNSPECIFIED Status: Acute (15) Back pain Code(s): M54.9 - DORSALGIA, UNSPECIFIED Status: Acute Comment: Pain control is inadequate - Plan For Thoracentesis by Pulmonary today. -: Decrease IVF to 125 Cc/hr. Start breathing treatments -: Increase amlodipine to 10 mg daily -: Start oxycodone as needed in addition to MS contin. -: Start miralax bid for constipation prevention. Ambien prn for insomnia * .
[2018-10-18] MEDS: Heparin 25,000 units/D5W 500 ML IVPB SCH ×2 (09:19→22:28)
[2018-10-18] MEDS: Allopurinol 300 MG TAB PO SCH (09:21)
[2018-10-18] MEDS: Morphine ER 15 MG TAB PO SCH (09:22)
[2018-10-18] MEDS: Amlodipine 5 MG TAB PO SCH (09:22)
[2018-10-18] MEDS: Polyethylene Glycol 3350 17 GM Packet PO SCH ×2 (09:23→20:42)
[2018-10-18] MEDS ORDERED: Lidocaine 1% (PF) 30 ML VIAL ONE (09:35)
[2018-10-18] MEDS ORDERED: Gadobenate Dimeglumine 529 MG/1 ML (20ML VIAL) ONE (09:35)
[2018-10-18] MEDS: Morphine 4 MG/ML VIAL SLOW IVP PRN (13:10)
[2018-10-18 13:49] LABS: Pleural Fluid, Amylase 72 U/L (Not Available); Pleural Fluid, Glucose Less than 20 mg/dL
[2018-10-18 14:40] LABS: BF Color Red; Body Fluid Source Pleural Fluid; Clarity Cloudy/Turbid (Clear); RBC Background Count 0.007; Tube # EDTA
[2018-10-18 14:47] LABS: WBC/NonHematic-Auto 16080 /cumm
[2018-10-18 14:48] LABS: RBC Count-Automated 153000 /cumm
--- NOTE | 2018-10-18 15:26 | MRI ---
PRE AND POSTCONTRAST ENHANCED MRI IMAGES LUMBAR SPINE: HISTORY: Patient with renal mass. FINDINGS: Multiplanar, multisequence pre- and postcontrast-enhanced MRI images of the lumbar spine performed. Images demonstrate extensive and massive paraaortic lymphadenopathy. There is a large right renal il l-defined mass seen. T12-L1: Unremarkable. L1-2: There is mild facet hypertrophy. No evidence of significant central stenosis or neural forami nal narrowing seen. The neural foramen are patent. L2-3: There is mild facet and ligamentum flavum hypertrophy. No significant degree of central steno sis or neural foraminal narrowing is seen. L3-4: There is some disk desiccation seen. There is a broad-based disk bulge with bilateral facet a nd ligamentum flavum hypertrophy. This does not result in a significant degree of central stenosis. There is minimal neural foraminal narrowing seen. L4-5: There is a minimal broad-based disk bulge with bilateral facet and ligamentum flavum hypertrop hy. No significant degree of central and lateral recess stenosis seen. The neural foramen are paten t. L5-S1: There is mild disk desiccation seen. There is a mild broad-based disk bulge minimally but no t significantly compressing the thecal sac. The neural foramen are patent. IMPRESSION: 1. Extensive paraaortic and prevertebral lymphadenopathy with large right renal mass. 2. No significant degree of central stenosis or neural foraminal narrowing is seen. No evidence of obvious compression fractures seen. No obvious evidence of vertebral body metastatic disease is seen . POS: [facility]
[2018-10-18 15:39] LABS: BF Segmented Neutrophils 48 %; Cell Count Non Hematic 48 %; Lymphocytes 3 %
[2018-10-18] MEDS ORDERED: fentaNYL 75 mcg/hour Patch TD SCH (17:30)
--- NOTE | 2018-10-18 18:24 | PRG ---
DATE OF SERVICE: 10/18/2018 SUBJECTIVE: Mr. Tapia is much quicker to respond to questions. He is probably close to his baseline now. OBJECTIVE: VITAL SIGNS: Heart rate 108, blood pressure has been mildly elevated 164/90, respiratory rates in the teens, and oximetry is 93%. LUNGS: Remarkable for decreased breath sounds with dullness at his right base. HEART: Regular rhythm. ABDOMEN: Soft. LABORATORY DATA: White count 14.3, hemoglobin 8.4, and platelets 328. Sodium 132, potassium 4, chloride 98, bicarb 23, BUN 33, and creatinine is down to 2.21. IMPRESSION: 1. Severe intravascular volume depletion associated with hypercalcemia of malignancy. 2. Acute renal insufficiency, likely related to that. His abdominal CT did not show any evidence of ureteral obstruction. 3. Severe back pain. We managed to do a lumbar spine MRI with IV morphine today. Fortunately, did not show any evidence of metastatic disease. 4. Pleural effusion, likely malignant. 5. Right suprarenal mass with abdominal mediastinal lymphadenopathy, currently in the process of working this up. 6. Thromboembolic disease on heparin. PLAN: We can get his creatinine down a little more, we can consider switching him to Lovenox and eliminate the need for the blood draws. I did recommend a thoracentesis. He did consent to this. PROCEDURE: He was placed in the sitting position. His right posterior hemithorax was cleansed with chlorhexidine. 10 mL of 1% lidocaine was used to anesthetize the skin in the pleura. A small incision was made with a #11 blade. An 8-Welsh Safety catheter was inserted down to the rib and just over the top of the rib into the pleural space. 1 L of bloody pleural fluid was evacuated. A pH of the fluid was 7.17. There were 153,000 red cells, 16,000 white cells, and mostly segmented neutrophils. Protein was 3.8, LDH was 5824, glucose was less than 20, and amylase 72. I discussed the above with pathologist, they believe they can have pleural fluid pathology results by tomorrow afternoon. 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 Job ID: [id number] [facility]
[2018-10-19] MEDS: Sodium Chloride 0.9% 1,000 ML IV SCH ×3 (01:01→12:22)
[2018-10-19 06:24] LABS: #Basophils 0.1 thou/uL (0.0-0.2); #Eosinphils 0.4 thou/uL (0.0-0.7); #Lymphocytes 1.5 thou/uL (1.20-3.40); #Monocytes 1.4 thou/uL (0.11-0.59); #Neutrophils 11.6 thou/uL (1.40-6.50); %Basophils 0.5 % (0.0-1.0); %Eosinophils 2.8 % (0.0-10.0); %Lymphocytes 9.7 % (21.0-51.0); %Monocytes 9.4 % (0.0-10.0); %Neutrophils 77.6 % (42.0-75.0); Hemoglobin 8.8 g/dL (14.0-18.0); Mean Corpuscular Hemoglobin 27.1 pg (27.0-31.0); Mean Corpuscular Volume 82.1 fL (78.0-98.0); Mean Platelet Volume 7.5 fL (7.4-10.4); Platelet Count 399 thou/uL (130-400); RBC Distribution Width 12.6 % (11.5-14.5); Red Blood Cell (RBC) Count 3.24 mill/uL (4.70-6.10); White Blood Cell (WBC) Count 14.9 thou/uL (4.8-10.8)
[2018-10-19 06:45] LABS: ALT (SGPT) 37 U/L (8-55); AST (SGOT) 45 U/L (5-34); Albumin 3.2 g/dL (3.5-5.0); Alkaline Phosphatase 105 U/L (40-150); BUN (Urea Nitrogen) 30 mg/dL (8.4-25.7); Bilirubin, Total 0.4 mg/dL (0.2-1.2); Calc. Creatinine Clearance 60 mL/min (70-130); Calcium 9.8 mg/dL (7.8-10.44); Carbon Dioxide 20 mmol/L (22-29); Estimated GFR-MDRD 37; Globulin 2.8 g/dL (2.4-3.5); Glucose 104 mg/dL (70-105)
[2018-10-19 06:53] LABS: Anion Gap 15 mmol/L (10-20); Chloride 99 mmol/L (98-107); Potassium 4.3 mmol/L (3.5-5.1); Sodium 131 mmol/L (136-145)
[2018-10-19] MEDS: Allopurinol 300 MG TAB PO SCH (09:09)
[2018-10-19] MEDS: Polyethylene Glycol 3350 17 GM Packet PO SCH ×2 (09:09→20:56)
[2018-10-19] MEDS: Amlodipine 5 MG TAB PO SCH (09:09)
--- NOTE | 2018-10-19 11:56 | PRG ---
DATE OF SERVICE: 10/19/2018 SUBJECTIVE: The patient was seen and examined, seems to be doing much better. OBJECTIVE: VITAL SIGNS: Noted with the following vital signs; blood pressure 128/102, pulse of 109, respiratory rate of 16, O2 saturation 93%. HEENT: Unremarkable. CARDIOVASCULAR: First and second heart sounds were heard. RESPIRATORY: Clear to auscultation. DIGESTIVE: Revealed obese abdomen. EXTREMITIES: Showed some peripheral edema. LABORATORY INVESTIGATION: Showed a sodium of 131, BUN of 30, creatinine of 1.9. IMPRESSION: 1. Acute kidney injury, which is much improved. 2. Hypercalcemia, now resolved back to within normal range. 3. Worsening hyponatremia . PLAN: 1. Deescalate IV fluid, normal saline. 2. Urine chemistry to evaluate for worsening hyponatremia. I do believe deescalating the IV fluid might help. 3. Renal supportive measures. 4. Further management to be dependent on the clinical course. Job ID: [id number]
--- NOTE | 2018-10-19 12:02 | PRG ---
DATE OF SERVICE: 10/18/2018 SUBJECTIVE: The patient is seen and examined, seems to be improving. Noted with the following vital signs. OBJECTIVE: VITAL SIGNS: Blood pressure 159/100, afebrile, and temperature 98.8. HEENT: Unremarkable. CARDIOVASCULAR SYSTEM: First and second heart sounds were heard. RESPIRATORY SYSTEM: Clear to auscultation. DIGESTIVE SYSTEM: Revealed an obese abdomen. EXTREMITIES: Show some bilateral lower extremity peripheral edema. LABORATORY INVESTIGATION: Significant for hemoglobin of 8.4, white count of 14,300. Chemistry showed calcium down to 10.5, creatinine down to 2.21, and sodium of 132. IMPRESSION: 1. 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 2. Acute kidney injury, improving. 3. Hyponatremia. PLAN: 1. We will begin to deescalate IV fluids at this point. 2. Renal supportive measures and avoid potentially nephrotoxic agents. 3. Further management to be dependent on the clinical course. Job ID: [id number]
[2018-10-19] MEDS: Heparin 25,000 units/D5W 500 ML IVPB SCH (13:25)
--- NOTE | 2018-10-19 13:31 | PRG ---
DATE OF SERVICE: 10/19/2018 SUBJECTIVE: I talked to pathologist last night. First look at the pleural fluid was suggestive of lymphoma. We should have some final results later today. I met with the and answered all of her questions. He did well overnight. He does have edema of his penis and scrotum that he is concerned about. I suspect this will gradually resolve and may be related to what is going on in his abdomen with his lymphadenopathy and also this thromboembolic process. He continues anticoagulation. He is having no clinical side effects of that. His back pain is unchanged. White count 14.9, hemoglobin 8.8, and platelets 399. Sodium 131, potassium 4.3, chloride 99, bicarb 20, BUN 30, and creatinine 1.9. His renal function continues to improve. Hopefully, we can start planning his treatment. His renal function is improving to a point where we might consider placing him on oral anticoagulants tomorrow. Calcium is down to 9.8. Job ID: [id number] [facility]
--- NOTE | 2018-10-19 15:03 | PDOC.PN ---
- Subjective Encounter Start Date: 10/19/18 Encounter Start Time: 15:01 Subjective: No new complaint. -: Slept well last night. Pain is better controlled. -: Swelling and SOB/Whhezing persists. - Objective Resuscitation Status - Order Detail: 10/16/18 05:47 Resuscitation Status Routine Resuscitation Status: FULL: Full Resuscitation Vital Signs & Weight: Vital Signs (12 hours) Temp Pulse BP Pulse Ox 10/19/18 12:00 97.9 F 10/19/18 09:09 108 H 175/94 H 10/19/18 08:00 96 10/19/18 07:16 98.3 F 10/19/18 06:54 93 L 10/19/18 04:00 98.6 F Weight Admit Weight 206 lb 5.643 oz Weight 212 lb Most Recent Monitor Data Heart Rate from ECG 115 NIBP 120/81 NIBP BP-Mean 94 Respiration from ECG 11 SpO2 90 I&O: 10/18/18 10/19/18 10/20/18 06:59 06:59 06:59 Intake Total 6646 4338 Output Total 2680 1510 Balance 3966 2828 Result Diagrams: 10/19/18 05:38 10/19/18 05:38 Phys Exam - Physical Examination HEENT: PERRLA, moist MMs Neck: supple, full ROM decreased air entry at the bases especially on the lefrt with few rhonchi Cardiovascular: no significant murmur Regular but tachycardic. enlarged but soft and non tender. BS + Moderate bilateral leg edema Neurological: non-focal, moves all 4 limbs Psychiatric: A&O x 3 Dx/Plan (1) Acute respiratory failure with hypoxia Code(s): J96.01 - ACUTE RESPIRATORY FAILURE WITH HYPOXIA Status: Acute Comment: Due to pleural effusion, PE and atelectasis with possible congestion. (2) Metastatic cancer Code(s): C79.9 - SECONDARY MALIGNANT NEOPLASM OF UNSPECIFIED SITE Status: Acute Comment: Stage 4: ? lymphoma or Renal cell carcinoma. (3) Acute pulmonary embolism Code(s): I26.99 - OTHER PULMONARY EMBOLISM WITHOUT ACUTE COR PULMONALE Status : Acute (4) Leg DVT (deep venous thromboembolism), acute Code(s): I82.409 - ACUTE EMBOLISM AND THOMBOS UNSP DEEP VN UNSP LOWER EXTREMITY Status: Acute (5) Hypercalcemia of malignancy Code(s): E83.52 - HYPERCALCEMIA Status: Acute Comment: Resolved with treatment. (6) DEVIKA (acute kidney injury) Code(s): N17.9 - ACUTE KIDNEY FAILURE, UNSPECIFIED Status: Acute Comment: Related to cancer, hypercalcemia and hemodynamic factors due to hypercalcemia induced diuresis (7) Pleural effusion on right Code(s): J90 - PLEURAL EFFUSION, NOT ELSEWHERE CLASSIFIED Status: Acute Comment: S/p L thoracentesis 10/18/2018 (8) Right kidney mass Code(s): N28.89 - OTHER SPECIFIED DISORDERS OF KIDNEY AND URETER Status: Acute (9) Retroperitoneal lymphadenopathy Code(s): R59.0 - LOCALIZED ENLARGED LYMPH NODES Status: Acute (10) Mediastinal adenopathy Code(s): R59.0 - LOCALIZED ENLARGED LYMPH NODES Status: Acute (11) Acute anoxic encephalopathy Code(s): G93.1 - ANOXIC BRAIN DAMAGE, NOT ELSEWHERE CLASSIFIED Status: Acute Comment: Improved. seem to be back to baseline (12) Physical deconditioning Code(s): R53.81 - OTHER MALAISE Status: Acute (13) Anemia Code(s): D64.9 - ANEMIA, UNSPECIFIED Status: Acute Comment: Most likely due to chronic illness with some acute blood loss related to anticoagulation. Acute drop from 11 on admission to 8 currently mostly due to correction of hemoconcentration with IVF (14) Constipation Code(s): K59.00 - CONSTIPATION, UNSPECIFIED Status: Acute (15) Back pain Code(s): M54.9 - DORSALGIA, UNSPECIFIED Status: Acute Comment: Pain control is better. MRI of T/L was negative for metastatis. ? neuropathic pain from nerves damage given retroperitoneal lumphadenopaathy. - Plan Continue Heparin infusion as biopsy is contemplated. -: Awaiting pathology report of pleural effusion. -: Continue analgesic. -: D/W Oncology. -: D/W patient and spouse and care plan explained. * .
[2018-10-19 15:29] LABS: G-6-PD,Quant 328 (146-376)
[2018-10-20] MEDS: Sodium Chloride 0.9% 1,000 ML IV SCH ×3 (00:34→17:26)
[2018-10-20] MEDS: Heparin 25,000 units/D5W 500 ML IVPB SCH ×2 (04:37→23:46)
[2018-10-20 04:55] LABS: #Basophils 0.1 thou/uL (0.0-0.2); #Eosinphils 0.2 thou/uL (0.0-0.7); #Monocytes 2.1 thou/uL (0.11-0.59); #Neutrophils 12.7 thou/uL (1.40-6.50); %Basophils 0.4 % (0.0-1.0); %Eosinophils 1.1 % (0.0-10.0); %Lymphocytes 11.5 % (21.0-51.0); %Monocytes 12.3 % (0.0-10.0); %Neutrophils 74.7 % (42.0-75.0); Hemoglobin 8.7 g/dL (14.0-18.0); Mean Corpuscular HGB CONC 32.7 g/dL (32.0-36.0); Mean Corpuscular Hemoglobin 27.1 pg (27.0-31.0); Mean Platelet Volume 7.2 fL (7.4-10.4); Platelet Count 500 thou/uL (130-400); RBC Distribution Width 12.7 % (11.5-14.5); Red Blood Cell (RBC) Count 3.21 mill/uL (4.70-6.10)
[2018-10-20 04:58] LABS: Albumin 3.4 g/dL (3.5-5.0); Anion Gap 20 mmol/L (10-20); BUN (Urea Nitrogen) 39 mg/dL (8.4-25.7); BUN/Creatinine Ratio 17.33; Calc. Creatinine Clearance 51 mL/min (70-130); Calcium 10.1 mg/dL (7.8-10.44); Carbon Dioxide 17 mmol/L (22-29); Chloride 97 mmol/L (98-107); Estimated GFR-MDRD 31; Glucose 122 mg/dL (70-105); Phosphorus 4.1 mg/dL (2.3-4.7); Potassium 4.6 mmol/L (3.5-5.1); Sodium 129 mmol/L (136-145)
[2018-10-20] MEDS ORDERED: Furosemide 40 MG/4 ML VIAL ONE (06:12)
[2018-10-20] MEDS ORDERED: Furosemide 40 MG/4 ML VIAL SLOW IVP SCH (06:30)
--- NOTE | 2018-10-20 08:01 | RAD ---
CHEST 1 VIEW PORTABLE: Date: 10/20/18 HISTORY: Wheezing, shortness of breath, and decreased O2 saturation. COMPARISON: 10/15/18. FINDINGS: Evidence for increasing right pleural effusion. Heart size is normal. The left lung is clear. IMPRESSION: Evidence for persistent and probably worsening right pleural effusion. Stable heart size and left pepe st. CODE T. POS: [facility]
[2018-10-20] MEDS: Polyethylene Glycol 3350 17 GM Packet PO SCH ×2 (08:29→20:51)
[2018-10-20] MEDS: Allopurinol 300 MG TAB PO SCH (08:29)
[2018-10-20] MEDS: Amlodipine 5 MG TAB PO SCH (08:29)
[2018-10-20 08:37] LABS: PTT 59.2 SEC (22.9-36.1)
[2018-10-20] MEDS: Ondansetron PF 4 MG/2 ML Vial IVP PRN (08:46)
[2018-10-20 09:22] LABS: Prothrombin Time 13.6 SEC (12.0-14.7)
--- NOTE | 2018-10-20 10:49 | ULT ---
UNILATERAL RIGHT RENAL ULTRASOUND: DATE: 10/20/2018. HISTORY: Renal mass. FINDINGS: The right kidney is enlarged measuring 14.9 cm x 7.2 cm. There is a hypoechoic mass at the superior pole right kidney which measures 5.6 cm x 4.8 cm x 4.2 cm. There is a large anechoic cystic structure at the inferior pole right kidney measuring 7.6 cm x 6.5 c m x 6.3 cm most compatible with a large renal cyst. There is a linear echogenic area seen which may represent septation or secondary to lobulated margin of the inferior pole right renal cyst. The renal pelvis is mildly prominent. The right kidney or urinary bladder were not imaged on this exam. IMPRESSION: 1. Hypoechoic mass superior pole right kidney. The mass measures 5.6 cm in maximal dimensions. Fin dings are suggestive of neoplastic process. Lymphoma is unable to be differentiated from lymphoma ba sed on sonographic evaluation as renal cell carcinoma can demonstrate varying appearances including h ypoechoic appearance of a renal mass. 2. Large right renal cyst. POS: [facility]
[2018-10-20 13:50] LABS: Anion Gap 17 mmol/L (10-20); BUN (Urea Nitrogen) 40 mg/dL (8.4-25.7); Calc. Creatinine Clearance 53 mL/min (70-130); Carbon Dioxide 21 mmol/L (22-29); Chloride 95 mmol/L (98-107); Estimated GFR-MDRD 29; Glucose 136 mg/dL (70-105); Potassium 3.9 mmol/L (3.5-5.1); Sodium 129 mmol/L (136-145)
[2018-10-20] MEDS ORDERED: Midazolam HCl 2 mg/2 ml Vial ONE (14:27)
[2018-10-20] MEDS ORDERED: Fentanyl 100 MCG/2 ML VIAL ONE (14:27)
[2018-10-20] MEDS ORDERED: Sodium Bicarbonate 2.5 MEQ/5 ML VIAL ONE (14:28)
[2018-10-20] MEDS ORDERED: Lidocaine 1% PF 5 ML VIAL ONE (14:28)
--- NOTE | 2018-10-20 16:32 | CT ---
CT GUIDED BONE MARROW BIOPSY: 10/20/18 HISTORY: 53-year-old male, hypercoagulable state. Suspected lymphoma. TECHNIQUE: Signed informed consent obtained. Patient placed prone on CT table. The skin posterior to the right i liac bone was prepared and draped in the usual sterile fashion. 25 gauge needle was used to apply bu ffered lidocaine superficially. 22 gauge spinal needle was used to apply buffered lidocaine multiple times at the cortical osseous surface of the right posterior superior iliac spine. A 11 gauge needle with trocar was advanced in tandem with the spinal needle, and then advanced a few millimeters deep t o the cortical bone. The trocar/stylet was removed. 10 mL of marrow aspirate was obtained in 20 mL sy ringe, and given to air analysis engineering technician from Pathology Laboratory. Next, the [employer] On-control mechanical drill was mounted on the 11 gauge bone marrow biopsy needle, and was advanced anteriorly, slightly oblique d laterally, into the right iliac bone, and then withdrawn. There was much difficulty in extracting t he impacted core bone fragment from the the lumen of the needle, and eventually required a hammer to do so, yielding a fragment of bone, which was given to the laboratory technicians. Compression was he ld at the site. No complications. IMPRESSION: 1. Successful bone marrow aspiration. 2. Successful 11 gauge bone marrow core biopsy. POS: MARY
--- NOTE | 2018-10-20 17:07 | PDOC.PN ---
- Subjective Encounter Start Date: 10/20/18 Encounter Start Time: 17:05 Subjective: feels OK.family at bedside & report confusion & somnolence -: no ON events.poor appetite - Objective Resuscitation Status - Order Detail: 10/16/18 05:47 Resuscitation Status Routine Resuscitation Status: FULL: Full Resuscitation MAR Reviewed: Yes Vital Signs & Weight: Vital Signs (12 hours) Temp Pulse BP Pulse Ox 10/20/18 15:25 97.6 F 10/20/18 12:00 97.8 F 10/20/18 08:29 108 H 175/94 H 10/20/18 08:07 98 10/20/18 07:41 93 L 10/20/18 07:13 97.3 F L Weight Admit Weight 206 lb 5.643 oz Weight 233 lb 7 oz Most Recent Monitor Data Heart Rate from ECG 106 NIBP 115/66 NIBP BP-Mean 82 Respiration from ECG 9 SpO2 89 I&O: 10/19/18 10/20/18 10/21/18 06:59 06:59 06:59 Intake Total 4338 1005 Output Total 1510 150 Balance 2828 855 Result Diagrams: 10/20/18 03:59 10/20/18 13:17 Additional Labs: Microbiology 10/18/18 12:30 Thoracentesis fluid Body Fluid Culture - Preliminary Laboratory Tests 10/15/18 10/15/18 10/16/18 19:27 19:27 00:32 Uric Acid Calcium Greater than 17.0 H* 15.6 H* Phosphorus Lactate Dehydrogenase B-Natriuretic Peptide 14.2 10/16/18 10/16/18 10/16/18 03:47 16:55 16:55 Uric Acid 12.6 H Calcium 15.2 H* 13.5 H* Phosphorus Lactate Dehydrogenase 1980 H B-Natriuretic Peptide 10/17/18 10/18/18 10/19/18 03:43 03:51 05:38 Uric Acid Calcium 11.9 H 10.5 H 9.8 Phosphorus Lactate Dehydrogenase B-Natriuretic Peptide 10/20/18 10/20/18 10/20/18 03:59 03:59 03:59 Uric Acid 7.4 H Calcium 10.1 Phosphorus 4.1 Lactate Dehydrogenase 3979 H B-Natriuretic Peptide Phys Exam - Physical Examination Constitutional: NAD sitting up in chair,somewhat drowsy,anasarca HEENT: PERRLA, moist MMs, sclera anicteric, oral pharynx no lesions Neck: no nodes, no JVD, supple, full ROM Respiratory: no wheezing, no rales, no rhonchi, clear to auscultation bilateral Cardiovascular: RRR, no significant murmur Gastrointestinal: soft, non-tender, positive bowel sounds distended Musculoskeletal: pulses present, edema present Neurological: non-focal, normal sensation, moves all 4 limbs Psychiatric: normal affect, A&O x 3 Dx/Plan (1) Acute pulmonary embolism Code(s): I26.99 - OTHER PULMONARY EMBOLISM WITHOUT ACUTE COR PULMONALE Status : Acute (2) Hypercalcemia of malignancy Code(s): E83.52 - HYPERCALCEMIA Status: Acute Comment: Resolved with treatment. (3) Leucocytosis Code(s): D72.829 - ELEVATED WHITE BLOOD CELL COUNT, UNSPECIFIED Status: Acute (4) Leg DVT (deep venous thromboembolism), acute Code(s): I82.409 - ACUTE EMBOLISM AND THOMBOS UNSP DEEP VN UNSP LOWER EXTREMITY Status: Acute (5) DEVIKA (acute kidney injury) Code(s): N17.9 - ACUTE KIDNEY FAILURE, UNSPECIFIED Status: Acute Comment: Related to cancer, hypercalcemia and hemodynamic factors due to hypercalcemia induced diuresis (6) Mediastinal adenopathy Code(s): R59.0 - LOCALIZED ENLARGED LYMPH NODES Status: Acute (7) Metastatic cancer Code(s): C79.9 - SECONDARY MALIGNANT NEOPLASM OF UNSPECIFIED SITE Status: Acute Comment: Stage 4: ? lymphoma or Renal cell carcinoma. (8) Physical deconditioning Code(s): R53.81 - OTHER MALAISE Status: Acute (9) Pleural effusion on right Code(s): J90 - PLEURAL EFFUSION, NOT ELSEWHERE CLASSIFIED Status: Acute Comment: S/p L thoracentesis 10/18/2018.Pl fluid +ve for B cell lymphoma (10) Retroperitoneal lymphadenopathy Code(s): R59.0 - LOCALIZED ENLARGED LYMPH NODES Status: Acute (11) Right kidney mass Code(s): N28.89 - OTHER SPECIFIED DISORDERS OF KIDNEY AND URETER Status: Acute - Plan plan discussed w/ family, DVT proph w/SCDs bone marrow Bx today.renal US shows mass again -: cont heparin drip for now. chnage to OAC if no more procedures planned -: worsening leucocytosis,increasing LDH.Uric acid lower ,so dont think Tumor -: lysis.check CPK in am -: Ca improved after NS. but not w anasarca.lasix X1 today.stop IVF * .poor prognosis * supportive care * am labs Review of Systems - Review of Systems Constitutional: weakness, malaise. negative: fever, chills, sweats, other ENT: negative: Ear Pain, Ear Discharge, Nose Pain, Nose Discharge, Nose Congestion, Mouth Pain, Mouth Swelling, Throat Pain, Throat Swelling, Other Respiratory: negative: Cough, Dry, Shortness of Breath, Hemoptysis, SOB with Excertion, Pleuritic Pain, Sputum, Wheezing Cardiovascular: negative: chest pain, palpitations, orthopnea, paroxysmal nocturnal dyspnea, edema, light headedness, other Gastrointestinal: negative: Nausea, Vomiting, Abdominal Pain, Diarrhea, Constipation, Melena, Hematochezia, Other Genitourinary: negative: Dysuria, Frequency, Incontinence, Hematuria, Retention , Other Musculoskeletal: negative: Neck Pain, Shoulder Pain, Arm Pain, Back Pain, Hand Pain, Leg Pain, Foot Pain, Other Neurological: negative: Weakness, Numbness, Incoordination, Change in Speech, Confusion, Seizures, Other - Medications/Allergies Allergies/Adverse Reactions: Allergies Allergy/AdvReac Type Severity Reaction Status Date / Time No Known Drug Allergies Allergy Verified 10/15/18 21:00 Medications: Current Medications Acetaminophen (Tylenol) 650 mg PO Q4H PRN PRN Reason: Headache/Fever/Mild Pain (1-3) Last Admin: 10/18/18 04:27 Dose: 650 mg Allopurinol (Zyloprim) 300 mg PO DAILY [facility] Last Admin: 10/20/18 08:29 Dose: 300 mg Amlodipine Besylate (Norvasc) 10 mg PO DAILY [facility] Last Admin: 10/20/18 08:29 Dose: 10 mg Bisacodyl (Dulcolax) 10 mg MI DAILYPRN PRN PRN Reason: Constipation Fentanyl (Duragesic) 75 mcg TD Q3D [facility] Last Admin: 10/18/18 17:56 Dose: 75 mcg Fentanyl (Duragesic) 25 mcg TD Q3D [facility] Last Admin: 10/20/18 16:26 Dose: 25 mcg Heparin Sodium (Porcine) (Heparin 1,000 Units/Ml (10 Ml)) 0 units SLOW IVP ASDIR [facility]; Protocol Heparin Sodium/Dextrose (Heparin 25,000 Units/D5w 500 Ml) 500 mls @ 0 mls/hr IVPB INF [facility]; Protocol Last Admin: 10/20/18 04:37 Dose: 500 mls Sodium Chloride (Normal Saline 0.9%) 1,000 mls @ 75 mls/hr IV .[id number] [facility] Last Admin: 10/20/18 01:00 Dose: Not Given Labetalol HCl (Normodyne) 10 mg SLOW IVP Q4H PRN PRN Reason: Systolic BP > 180 Last Admin: 10/17/18 06:40 Dose: 10 mg Morphine Sulfate (Morphine) 4 mg SLOW IVP Q15MIN PRN PRN Reason: Breakthrough Pain Last Admin: 10/18/18 13:10 Dose: 4 mg Ondansetron HCl (Zofran Odt) 4 mg PO Q6H PRN PRN Reason: Nausea/Vomiting Ondansetron HCl (Zofran) 4 mg IVP Q6H PRN PRN Reason: Nausea/Vomiting Last Admin: 10/20/18 08:46 Dose: 4 mg Oxycodone HCl (Oxycodone Ir) 5 mg PO Q4H PRN PRN Reason: Pain Pantoprazole Sodium (Protonix) 40 mg PO DAILY [facility] Last Admin: 10/20/18 08:29 Dose: 40 mg Polyethylene Glycol (Miralax) 17 gm PO BID [facility] Last Admin: 10/20/18 08:29 Dose: 17 gm
--- NOTE | 2018-10-20 19:27 | PRG ---
DATE OF SERVICE: 10/20/2018 SUBJECTIVE: Glenn Tapia is tentatively to go down for bone marrow. He started hallucinating on the fentanyl today, so this has been discontinued. When his pain returns, then he can be started on a lower dose patch perhaps 25 mcg. OBJECTIVE: VITAL SIGNS: His vital signs remained stable. His respiratory rate is in the teens when he is not moving around. LUNGS: Still has decreased breath sounds on the right. HEART: Regular rhythm. ABDOMEN: Soft. : He still has scrotal edema. IMPRESSION: Large B-cell lymphoma. Bone marrow will be done today. I have a gut feeling that this is a fairly aggressive behaving lymphoma, so hopefully, we can get him started on chemotherapy soon. We will continue with heparin anticoagulation. We will check his renal function tomorrow. If his renal function is stable, if Oncology agrees, I would consider switching him to Eliquis. Job ID: [id number] MTDD
--- NOTE | 2018-10-20 19:43 | PRG ---
DATE OF SERVICE: 10/20/2018 SUBJECTIVE: The patient was seen and examined. He was very wheezy and short of breath earlier in the day for which I gave the patient IV Lasix. IV fluid was discontinued last night. The patient seems to be very drowsy. OBJECTIVE: GENERAL: Hemodynamically stable. VITAL SIGNS: Temperature 97.6, pulse 108, blood pressure was , O2 saturations 93%. HEENT: Unremarkable. CARDIOVASCULAR: First and second heart sounds were heard. RESPIRATORY SYSTEM: Clear to auscultation. DIGESTIVE: Revealed a benign abdomen. EXTREMITIES: Showed 3+ peripheral edema. SKIN: No new gross rash. LYMPHATICS: No peripheral lymphadenopathy. LABORATORY INVESTIGATION: Showed a creatinine of 2.37, BUN of 40, and platelet of 500,000. IMPRESSION: 1. Acute kidney injury. 2. Pulmonary embolism. 3. Severe hypercalcemia. 4. Hypovolemia with respiratory distress in the context of pleural effusion. 5. Right kidney mass. 6. Hyponatremia, likely in the context of syndrome of inappropriate antidiuretic hormone secretion. PLAN: 1. Limit free water intake. 2. P.r.n. Lasix. 3. If this sodium level was to worsen, we will recommend initiating anti-ADH treatment. 4. Renally dose all medications. 5. Further management will be dependent on the clinical course. Job ID: [id number]
[2018-10-21 06:46] LABS: #Basophils 0.1 thou/uL (0.0-0.2); #Eosinphils 0.4 thou/uL (0.0-0.7); #Lymphocytes 1.8 thou/uL (1.20-3.40); #Monocytes 1.7 thou/uL (0.11-0.59); #Neutrophils 11.6 thou/uL (1.40-6.50); %Basophils 0.4 % (0.0-1.0); %Eosinophils 2.3 % (0.0-10.0); %Lymphocytes 11.4 % (21.0-51.0); %Monocytes 10.9 % (0.0-10.0); Hemoglobin 8.5 g/dL (14.0-18.0); Mean Corpuscular HGB CONC 33.5 g/dL (32.0-36.0); Mean Corpuscular Hemoglobin 27.4 pg (27.0-31.0); Platelet Count 470 thou/uL (130-400); RBC Distribution Width 12.6 % (11.5-14.5); Red Blood Cell (RBC) Count 3.11 mill/uL (4.70-6.10); White Blood Cell (WBC) Count 15.5 thou/uL (4.8-10.8)
[2018-10-21 07:02] LABS: Uric Acid 7.6 mg/dL (3.5-7.2)
[2018-10-21] MEDS: Polyethylene Glycol 3350 17 GM Packet PO SCH ×3 (09:07→20:58)
[2018-10-21] MEDS: Allopurinol 300 MG TAB PO SCH (09:08)
[2018-10-21] MEDS: Amlodipine 5 MG TAB PO SCH (09:08)
--- NOTE | 2018-10-21 09:26 | EKG ---
Test Reason : Blood Pressure : / mmHG Vent. Rate : 130 BPM Atrial Rate : 130 BPM P-R Int : 152 ms QRS Dur : 086 ms QT Int : 294 ms P-R-T Axes : 024 028 018 degrees QTc Int : 432 ms Sinus tachycardia Cannot rule out Anterior infarct , age undetermined Abnormal ECG Confirmed by REE HERNANDEZ ([id number]), photographic editor TD VILLARREAL ([id number]) on 10/21/2018 9:25:51 AM Referred By: Confirmed By:REE HERNANDEZ
[2018-10-21] MEDS: Heparin 25,000 units/D5W 500 ML IVPB SCH (12:53)
--- NOTE | 2018-10-21 15:59 | PDOC.PN ---
- Subjective Encounter Start Date: 10/21/18 Encounter Start Time: 15:57 Subjective: No new problem. Amnulating more. Still swollen -: Denied fever or chest pain. -: Had bone biopsy 10/20/2018 - Objective Resuscitation Status - Order Detail: 10/16/18 05:47 Resuscitation Status Routine Resuscitation Status: FULL: Full Resuscitation Vital Signs & Weight: Vital Signs (12 hours) Temp Pulse BP Pulse Ox 10/21/18 15:13 98.7 F 10/21/18 11:29 98.2 F 10/21/18 09:08 108 H 175/94 H 10/21/18 08:00 94 L 10/21/18 07:14 99.0 F 10/21/18 04:00 98.0 F Weight Admit Weight 206 lb 5.643 oz Weight 238 lb 8 oz Most Recent Monitor Data Heart Rate from ECG 119 NIBP 141/87 NIBP BP-Mean 105 Respiration from ECG 17 SpO2 96 I&O: 10/20/18 10/21/18 10/22/18 06:59 06:59 06:59 Intake Total 1005 240 Output Total 150 525 500 Balance 855 -285 -500 Result Diagrams: 10/21/18 06:21 10/20/18 13:17 Phys Exam - Physical Examination HEENT: PERRLA, moist MMs Neck: supple Fair air entry bilaterally. decreased at the bases Regular rhythm but tachycardic Obese, enlarged Moderate to severe bilateral leg edema Neurological: non-focal, moves all 4 limbs Psychiatric: A&O x 3 Dx/Plan (1) B-cell lymphoma Code(s): C85.10 - UNSPECIFIED B-CELL LYMPHOMA, UNSPECIFIED SITE Status: Acute (2) Acute respiratory failure with hypoxia Code(s): J96.01 - ACUTE RESPIRATORY FAILURE WITH HYPOXIA Status: Acute Comment: Due to pleural effusion, PE and atelectasis with possible congestion. (3) Acute pulmonary embolism Code(s): I26.99 - OTHER PULMONARY EMBOLISM WITHOUT ACUTE COR PULMONALE Status : Acute (4) Leg DVT (deep venous thromboembolism), acute Code(s): I82.409 - ACUTE EMBOLISM AND THOMBOS UNSP DEEP VN UNSP LOWER EXTREMITY Status: Acute (5) Hypercalcemia of malignancy Code(s): E83.52 - HYPERCALCEMIA Status: Acute Comment: Resolved with treatment. (6) DEVIKA (acute kidney injury) Code(s): N17.9 - ACUTE KIDNEY FAILURE, UNSPECIFIED Status: Acute Comment: Related to cancer, hypercalcemia and hemodynamic factors due to hypercalcemia induced diuresis (7) Pleural effusion on right Code(s): J90 - PLEURAL EFFUSION, NOT ELSEWHERE CLASSIFIED Status: Acute Comment: S/p L thoracentesis 10/18/2018.Pl fluid +ve for B cell lymphoma (8) Right kidney mass Code(s): N28.89 - OTHER SPECIFIED DISORDERS OF KIDNEY AND URETER Status: Acute (9) Retroperitoneal lymphadenopathy Code(s): R59.0 - LOCALIZED ENLARGED LYMPH NODES Status: Acute (10) Mediastinal adenopathy Code(s): R59.0 - LOCALIZED ENLARGED LYMPH NODES Status: Acute (11) Acute anoxic encephalopathy Code(s): G93.1 - ANOXIC BRAIN DAMAGE, NOT ELSEWHERE CLASSIFIED Status: Acute Comment: Improved. seem to be back to baseline (12) Physical deconditioning Code(s): R53.81 - OTHER MALAISE Status: Acute (13) Anemia Code(s): D64.9 - ANEMIA, UNSPECIFIED Status: Acute Comment: Most likely due to chronic illness with some acute blood loss related to anticoagulation. Acute drop from 11 on admission to 8 currently mostly due to correction of hemoconcentration with IVF (14) Constipation Code(s): K59.00 - CONSTIPATION, UNSPECIFIED Status: Acute (15) Back pain Code(s): M54.9 - DORSALGIA, UNSPECIFIED Status: Acute Comment: Pain control is better. MRI of T/L was negative for metastatis. ? neuropathic pain from nerves damage given retroperitoneal lumphadenopaathy. (16) Anasarca Code(s): R60.1 - GENERALIZED EDEMA Status: Acute - Plan lasix 40 IV x 1. -: Start metoprolol 12.5 bid. -: Continue anticoagulation. -: right renal mass biopsy contemplated. defer to Oncology -: Oxygen supplementation as needed * .
[2018-10-21] MEDS ORDERED: Furosemide 40 MG/4 ML VIAL SLOW IVP SCH (16:00)
[2018-10-21 18:38] LABS: Bilirubin Negative (Negative); Blood, Urine Small (Negative); Glucose, Urine (Dipstick) Negative (Negative); Leukocyte Negative (Negative); Nitrite Negative (Negative); Protein, Urine (Dipstick) Trace mg/dL (Neg-Trace); Urobilinogen 0.2 mg/dL (0.2-1.0); pH, Urine 5.5 (5.0-9.0)
[2018-10-21 18:39] LABS: Clarity Hazy (Clear)
[2018-10-21 18:56] LABS: Bacteria/HPF Rare-Few HPF (None Seen); Hyaline Casts/LPF 0-3 HYALINE CAST LPF (0-3 Hyaline); RBC/HPF 0-3 HPF (0-3); Squamous Epithelial None Seen HPF (0-3); WBC/HPF 0-3 HPF (0-3)
[2018-10-21 18:58] LABS: Urine Culture Reflex No No
[2018-10-21 19:05] LABS: Creatinine, Urine 72.34 mg/dL (63-166)
[2018-10-21] MEDS ORDERED: Nitroglycerin 0.4 MG TAB (25 Tab Bottle) ONE (19:15)
[2018-10-21] MEDS: Metoprolol Tartrate 25 MG TAB PO SCH (20:58)
--- NOTE | 2018-10-21 23:26 | PRG ---
DATE OF SERVICE: 10/21/2018 SUBJECTIVE: Mr. Tapia has no new complaints. He is trying to decide where he wants to be treated. I have explained that at least for the first round of therapy, the decision is fairly easy in my opinion. He should get treated where he can get treated most expeditiously. I am afraid that he has a fairly aggressive lymphoma. I encouraged him to go outside today and sit in the sun. I asked the nurses to weigh him on a standing scale, so we would have some idea of what his true weight was, since in my opinion the bed scales are inaccurate. The reported weight on the bed scale was 231, the weight on the standing scale is 238. His admitting weight was 202. I think he is developing ascites as well as lower extremity and scrotal edema. Probably time to cut back on his fluids. LABORATORY DATA: Reviewing his lab, his hemoglobin is stable at 8.5, white count 15.5, and platelets 470. Sodium 129, potassium 3.9, chloride 95, bicarb 21 yesterday, creatinine 2.37. For some reason, his renal function was not checked today. PLAN: We will continue with daily lab. His fluids will be hep-locked. We will try to diurese him and monitor his renal function. Job ID: [id number]
[2018-10-22] MEDS: Heparin 25,000 units/D5W 500 ML IVPB SCH ×2 (00:56→11:41)
[2018-10-22 06:04] LABS: ALT (SGPT) 34 U/L (8-55); AST (SGOT) 44 U/L (5-34); Albumin 3.3 g/dL (3.5-5.0); Alkaline Phosphatase 165 U/L (40-150); Anion Gap 15 mmol/L (10-20); BUN (Urea Nitrogen) 39 mg/dL (8.4-25.7); Bilirubin, Total 0.4 mg/dL (0.2-1.2); Calc. Creatinine Clearance 56 mL/min (70-130); Carbon Dioxide 24 mmol/L (22-29); Chloride 95 mmol/L (98-107); Estimated GFR-MDRD 29; Globulin 3.2 g/dL (2.4-3.5); Glucose 93 mg/dL (70-105); Potassium 3.9 mmol/L (3.5-5.1); Protein, Total 6.5 g/dL (6.0-8.3); Sodium 130 mmol/L (136-145)
[2018-10-22 06:28] LABS: Band 1 % (5-11); Eosinophils 4 % (0-10); Hemoglobin 8.4 g/dL (14.0-18.0); Lymphocytes 15 % (21-51); MDiff Complete? YES; Mean Corpuscular HGB CONC 33.5 g/dL (32.0-36.0); Mean Corpuscular Hemoglobin 26.7 pg (27.0-31.0); Mean Corpuscular Volume 79.7 fL (78.0-98.0); Mean Platelet Volume 6.7 fL (7.4-10.4); Monocytes 8 % (0-10); Neutrophil 72 % (42-75); Platelet Count 445 thou/uL (130-400); Platelet Morphology Comment Appears Increased; RBC Distribution Width 12.8 % (11.5-14.5); Red Blood Cell (RBC) Count 3.14 mill/uL (4.70-6.10); White Blood Cell (WBC) Count 14.8 thou/uL (4.8-10.8)
[2018-10-22] MEDS: Amlodipine 5 MG TAB PO SCH (09:40)
[2018-10-22] MEDS: Allopurinol 300 MG TAB PO SCH (09:40)
[2018-10-22] MEDS: Metoprolol Tartrate 25 MG TAB PO SCH ×2 (09:41→20:56)
[2018-10-22] MEDS: Polyethylene Glycol 3350 17 GM Packet PO SCH ×2 (09:42→20:56)
[2018-10-22] MEDS ORDERED: Furosemide 40 MG/4 ML VIAL SLOW IVP SCH (10:45)
[2018-10-22] MEDS ORDERED: Morphine ER 15 MG TAB PO SCH ×2 (13:00→21:00)
[2018-10-22] MEDS: Furosemide 40 MG/4 ML VIAL SLOW IVP SCH (14:30)
--- NOTE | 2018-10-22 14:40 | PDOC.PN ---
- Subjective Encounter Start Date: 10/22/18 Encounter Start Time: 11:38 Subjective: No new problem. SOB is improving. Diuresing well. -: No chest pain or fever - Objective Resuscitation Status - Order Detail: 10/16/18 05:47 Resuscitation Status Routine Resuscitation Status: FULL: Full Resuscitation Vital Signs & Weight: Vital Signs (12 hours) Temp Pulse Pulse Pulse BP BP BP 10/22/18 10:52 97.6 F 10/22/18 10:34 106 H 103 H 138/88 136/74 10/22/18 09:40 108 H 175/94 H 10/22/18 08:00 10/22/18 07:48 98.0 F 10/22/18 03:42 97.5 F L Pulse Ox 10/22/18 10:52 10/22/18 10:34 10/22/18 09:40 10/22/18 08:00 93 L 10/22/18 07:48 10/22/18 03:42 Weight Admit Weight 206 lb 5.643 oz Weight 232 lb 14.4 oz Most Recent Monitor Data Heart Rate from ECG 103 NIBP 136/86 NIBP BP-Mean 102 Respiration from ECG 16 SpO2 90 I&O: 10/21/18 10/22/18 10/23/18 06:59 06:59 06:59 Intake Total 240 920 Output Total 525 1050 Balance -285 -130 Result Diagrams: 10/22/18 05:26 10/22/18 05:26 Phys Exam - Physical Examination HEENT: PERRLA, moist MMs Neck: no JVD, supple Fair air entry with few scattered rhonchi. Cardiovascular: RRR Enlarged, soft and non tender moderate bilateral leg edema Neurological: non-focal, moves all 4 limbs ambulant Psychiatric: A&O x 3 Dx/Plan (1) B-cell lymphoma Code(s): C85.10 - UNSPECIFIED B-CELL LYMPHOMA, UNSPECIFIED SITE Status: Acute (2) Acute respiratory failure with hypoxia Code(s): J96.01 - ACUTE RESPIRATORY FAILURE WITH HYPOXIA Status: Acute Comment: Due to pleural effusion, PE and atelectasis with possible congestion. (3) Acute pulmonary embolism Code(s): I26.99 - OTHER PULMONARY EMBOLISM WITHOUT ACUTE COR PULMONALE Status : Acute (4) Leg DVT (deep venous thromboembolism), acute Code(s): I82.409 - ACUTE EMBOLISM AND THOMBOS UNSP DEEP VN UNSP LOWER EXTREMITY Status: Acute (5) Hypercalcemia of malignancy Code(s): E83.52 - HYPERCALCEMIA Status: Acute Comment: Resolved with treatment. (6) DEVIKA (acute kidney injury) Code(s): N17.9 - ACUTE KIDNEY FAILURE, UNSPECIFIED Status: Acute Comment: Related to cancer, hypercalcemia and hemodynamic factors due to hypercalcemia induced diuresis (7) Pleural effusion on right Code(s): J90 - PLEURAL EFFUSION, NOT ELSEWHERE CLASSIFIED Status: Acute Comment: S/p L thoracentesis 10/18/2018.Pl fluid +ve for B cell lymphoma (8) Right kidney mass Code(s): N28.89 - OTHER SPECIFIED DISORDERS OF KIDNEY AND URETER Status: Acute (9) Retroperitoneal lymphadenopathy Code(s): R59.0 - LOCALIZED ENLARGED LYMPH NODES Status: Acute (10) Mediastinal adenopathy Code(s): R59.0 - LOCALIZED ENLARGED LYMPH NODES Status: Acute (11) Acute anoxic encephalopathy Code(s): G93.1 - ANOXIC BRAIN DAMAGE, NOT ELSEWHERE CLASSIFIED Status: Acute Comment: Improved. seem to be back to baseline (12) Physical deconditioning Code(s): R53.81 - OTHER MALAISE Status: Acute (13) Anemia Code(s): D64.9 - ANEMIA, UNSPECIFIED Status: Acute Comment: Most likely due to chronic illness with some acute blood loss related to anticoagulation. Acute drop from 11 on admission to 8 currently mostly due to correction of hemoconcentration with IVF (14) Constipation Code(s): K59.00 - CONSTIPATION, UNSPECIFIED Status: Acute (15) Back pain Code(s): M54.9 - DORSALGIA, UNSPECIFIED Status: Acute Comment: Pain control is better. MRI of T/L was negative for metastatis. ? neuropathic pain from nerves damage given retroperitoneal lumphadenopaathy. (16) Anasarca Code(s): R60.1 - GENERALIZED EDEMA Status: Acute - Plan Continue diuretic and monitor renal function and electrolytes. -: Continue anticoagulation. -: Awaiting bone marrow biopsy -: Wean oxygen as tolerated. -: Increase metoprolol to 25 bid. * .
--- NOTE | 2018-10-22 15:40 | PRG ---
DATE OF SERVICE: 10/22/2018 SUBJECTIVE: Glenn Tapia is starting to hallucinate again, so he has been taken off his fentanyl patch and started on MS Contin again. He has tolerated the morphine. We can treat breakthrough pain with IV morphine. OBJECTIVE: VITAL SIGNS: He is afebrile. Heart rate is 103, blood pressure is 138/88. He received Lasix and his intake and output was -130. He actually may need a bigger dose of Lasix given his renal insufficiency. The etiology of his renal insufficiency is unclear. His renal ultrasound did not clearly show obstruction. Perhaps some of this is related to space occupation of a renal mass. We will increase diuretics. I will continue to follow the other physicians caring for him. Job ID: [id number]
[2018-10-22] MEDS: Apixaban 5 MG TAB PO SCH (20:56)
[2018-10-22] MEDS: Morphine ER 15 MG TAB PO SCH (20:57)
[2018-10-22] MEDS ORDERED: Apixaban 5 MG TAB PO SCH (21:00)
[2018-10-23 05:40] LABS: ALT (SGPT) 28 U/L (8-55); AST (SGOT) 40 U/L (5-34); Albumin 3.2 g/dL (3.5-5.0); Alkaline Phosphatase 141 U/L (40-150); Anion Gap 18 mmol/L (10-20); BUN (Urea Nitrogen) 37 mg/dL (8.4-25.7); Bilirubin, Total 0.5 mg/dL (0.2-1.2); Calc. Creatinine Clearance 59 mL/min (70-130); Calcium 11.1 mg/dL (7.8-10.44); Carbon Dioxide 23 mmol/L (22-29); Chloride 94 mmol/L (98-107); Estimated GFR-MDRD 33; Globulin 3.1 g/dL (2.4-3.5); Glucose 90 mg/dL (70-105); Potassium 3.8 mmol/L (3.5-5.1); Protein, Total 6.3 g/dL (6.0-8.3); Sodium 131 mmol/L (136-145)
[2018-10-23 05:47] LABS: Band 3 % (5-11); Eosinophils 5 % (0-10); Hemoglobin 8.2 g/dL (14.0-18.0); Lymphocytes 8 % (21-51); MDiff Complete? YES; Mean Corpuscular HGB CONC 34.3 g/dL (32.0-36.0); Mean Corpuscular Hemoglobin 27.7 pg (27.0-31.0); Mean Corpuscular Volume 80.7 fL (78.0-98.0); Mean Platelet Volume 6.8 fL (7.4-10.4); Metamyelocyte 1 % (0-0); Monocytes 15 % (0-10); Myelocyte 1 % (0-0); Neutrophil 67 % (42-75); Platelet Count 430 thou/uL (130-400); RBC Distribution Width 13.3 % (11.5-14.5); Red Blood Cell (RBC) Count 2.96 mill/uL (4.70-6.10); White Blood Cell (WBC) Count 14.8 thou/uL (4.8-10.8)
[2018-10-23] MEDS: Furosemide 40 MG/4 ML VIAL SLOW IVP SCH ×2 (06:05→15:53)
[2018-10-23] MEDS: Allopurinol 300 MG TAB PO SCH (09:33)
[2018-10-23] MEDS: Amlodipine 5 MG TAB PO SCH (09:33)
[2018-10-23] MEDS: Metoprolol Tartrate 25 MG TAB PO SCH ×2 (09:35→21:39)
[2018-10-23] MEDS: Apixaban 5 MG TAB PO SCH ×2 (09:35→21:39)
[2018-10-23] MEDS: Morphine ER 15 MG TAB PO SCH ×2 (09:35→21:40)
[2018-10-23] MEDS: Polyethylene Glycol 3350 17 GM Packet PO SCH ×2 (09:36→21:39)
[2018-10-23] MEDS ORDERED: Metolazone 5 MG TAB PO SCH (10:00)
[2018-10-23 12:12] VITALS: BMI 37.5
--- NOTE | 2018-10-23 12:16 | PRG ---
DATE OF SERVICE: 10/23/2018 SUBJECTIVE: Glenn Tapia has no new complaints. He switched to Eliquis yesterday. He is mildly hypertensive today. Intake and output -765. OBJECTIVE: Lungs, heart, and abdomen are unchanged. LABORATORY DATA: White count 14.8, hemoglobin 8.2, platelets 430. Sodium 131, potassium 3.8, chloride 94, bicarb 23, BUN 37, creatinine 2.1, calcium is 11.1. IMPRESSION: 1. Large B-cell lymphoma. Bone marrow biopsy is pending. 2. Acute on chronic kidney disease. He will continue with serial lab checks. 3. Deep venous thrombosis and pulmonary embolism, on Eliquis now. 4. Volume overload secondary to resuscitation attempts when he presented with hypercalcemia and renal insufficiency. He is gently being diuresed now, being -500 to 1 L a day is reasonable given his creatinine. We will continue to follow. I met with the and answered all of her questions. Job ID: [id number]
--- NOTE | 2018-10-23 15:22 | PDOC.PN ---
- Subjective Encounter Start Date: 10/23/18 Encounter Start Time: 15:21 Subjective: feels poorly.poor appetite.care discussed w & mom at bedside - Objective Resuscitation Status - Order Detail: 10/16/18 05:47 Resuscitation Status Routine Resuscitation Status: FULL: Full Resuscitation MAR Reviewed: Yes Vital Signs & Weight: Vital Signs (12 hours) Temp Pulse BP Pulse Ox 10/23/18 14:51 97.7 F 10/23/18 09:33 108 H 175/94 H 10/23/18 07:53 92 L 10/23/18 07:11 98.9 F 10/23/18 03:40 98.2 F Weight Admit Weight 206 lb 5.643 oz Weight 232 lb 14.4 oz Most Recent Monitor Data Heart Rate from ECG 101 NIBP 120/88 NIBP BP-Mean 98 Respiration from ECG 20 SpO2 87 I&O: 10/22/18 10/23/18 10/24/18 06:59 06:59 06:59 Intake Total 920 1110 Output Total 1050 1875 Balance -130 -765 Result Diagrams: 10/23/18 05:05 10/23/18 05:05 Additional Labs: Microbiology 10/18/18 12:30 Thoracentesis fluid Body Fluid Culture - Preliminary Laboratory Tests 10/15/18 10/16/18 10/16/18 19:27 00:32 03:47 Creatinine 2.96 H 2.85 H Calcium Greater than 17.0 H* 15.6 H* 15.2 H* Alkaline Phosphatase Lactate Dehydrogenase 10/16/18 10/16/18 10/17/18 16:55 16:55 03:43 Creatinine 2.75 H 2.55 H Calcium 13.5 H* 11.9 H Alkaline Phosphatase Lactate Dehydrogenase 1980 H 10/18/18 10/19/18 10/20/18 03:51 05:38 03:59 Creatinine 1.90 H 2.25 H Calcium 10.5 H 9.8 10.1 Alkaline Phosphatase 105 Lactate Dehydrogenase 10/20/18 10/20/18 10/21/18 03:59 13:17 06:21 Creatinine 2.37 H Calcium 10.0 Alkaline Phosphatase Lactate Dehydrogenase 3979 H 4040 H 10/22/18 10/23/18 05:26 05:05 Creatinine 2.32 H 2.13 H Calcium 11.0 H 11.1 H Alkaline Phosphatase 165 H 141 Lactate Dehydrogenase Phys Exam - Physical Examination Constitutional: NAD HEENT: PERRLA, moist MMs, sclera anicteric, oral pharynx no lesions Neck: no nodes, no JVD, supple, full ROM Respiratory: no wheezing, no rales, no rhonchi, clear to auscultation bilateral Cardiovascular: RRR, no significant murmur Gastrointestinal: soft, non-tender, no distention, positive bowel sounds Musculoskeletal: pulses present anasarca Neurological: non-focal, normal sensation, moves all 4 limbs Psychiatric: normal affect, A&O x 3 Dx/Plan (1) Acute pulmonary embolism Code(s): I26.99 - OTHER PULMONARY EMBOLISM WITHOUT ACUTE COR PULMONALE Status : Acute Comment: on eliquis (2) Hypercalcemia of malignancy Code(s): E83.52 - HYPERCALCEMIA Status: Acute Comment: Resolved with treatment.Calcium creeping back up as pt is off of IVF (3) Leucocytosis Code(s): D72.829 - ELEVATED WHITE BLOOD CELL COUNT, UNSPECIFIED Status: Acute (4) Leg DVT (deep venous thromboembolism), acute Code(s): I82.409 - ACUTE EMBOLISM AND THOMBOS UNSP DEEP VN UNSP LOWER EXTREMITY Status: Acute (5) DEVIKA (acute kidney injury) Code(s): N17.9 - ACUTE KIDNEY FAILURE, UNSPECIFIED Status: Acute Comment: Related to cancer, hypercalcemia and hemodynamic factors due to hypercalcemia induced diuresis (6) Mediastinal adenopathy Code(s): R59.0 - LOCALIZED ENLARGED LYMPH NODES Status: Acute (7) Metastatic cancer Code(s): C79.9 - SECONDARY MALIGNANT NEOPLASM OF UNSPECIFIED SITE Status: Deleted Comment: Stage 4: ? lymphoma or Renal cell carcinoma. (8) Physical deconditioning Code(s): R53.81 - OTHER MALAISE Status: Acute (9) Pleural effusion on right Code(s): J90 - PLEURAL EFFUSION, NOT ELSEWHERE CLASSIFIED Status: Acute Comment: S/p L thoracentesis 10/18/2018.Pl fluid +ve for B cell lymphoma (10) Retroperitoneal lymphadenopathy Code(s): R59.0 - LOCALIZED ENLARGED LYMPH NODES Status: Acute (11) Right kidney mass Code(s): N28.89 - OTHER SPECIFIED DISORDERS OF KIDNEY AND URETER Status: Acute - Plan DVT proph w/SCDs awating BM biopsy results to formulate Rx plans per Oncology -: follow UA and LDH and Calcium levels. -: rai need Zometa if calcium continues to go up -: cont Diuresis .ECHo shows NL EF -: Guarded prognosis. am labs * . Review of Systems - Review of Systems Constitutional: weakness, malaise. negative: fever, chills, sweats, other Gastrointestinal: negative: Nausea, Vomiting, Abdominal Pain, Diarrhea, Constipation, Melena, Hematochezia, Other Genitourinary: negative: Dysuria, Frequency, Incontinence, Hematuria, Retention , Other Musculoskeletal: negative: Neck Pain, Shoulder Pain, Arm Pain, Back Pain, Hand Pain, Leg Pain, Foot Pain, Other Skin: negative: Rash, Lesions, Александр, Bruising, Other Neurological: negative: Weakness, Numbness, Incoordination, Change in Speech, Confusion, Seizures, Other - Medications/Allergies Allergies/Adverse Reactions: Allergies Allergy/AdvReac Type Severity Reaction Status Date / Time No Known Drug Allergies Allergy Verified 10/15/18 21:00 Medications: Current Medications Acetaminophen (Tylenol) 650 mg PO Q4H PRN PRN Reason: Headache/Fever/Mild Pain (1-3) Last Admin: 10/18/18 04:27 Dose: 650 mg Allopurinol (Zyloprim) 300 mg PO DAILY [facility] Last Admin: 10/23/18 09:33 Dose: 300 mg Amlodipine Besylate (Norvasc) 10 mg PO DAILY [facility] Last Admin: 10/23/18 09:33 Dose: 10 mg Apixaban (Eliquis) 10 mg PO BID [facility] Last Admin: 10/23/18 09:35 Dose: 10 mg Bisacodyl (Dulcolax) 10 mg [place] DAILYPRN PRN PRN Reason: Constipation Furosemide (Lasix) 40 mg SLOW IVP 0600,1400 [facility] Last Admin: 10/23/18 06:05 Dose: 40 mg Labetalol HCl (Normodyne) 10 mg SLOW IVP Q4H PRN PRN Reason: Systolic BP > 180 Last Admin: 10/17/18 06:40 Dose: 10 mg Metoprolol Tartrate (Lopressor) 25 mg PO BID [facility] Last Admin: 10/23/18 09:35 Dose: 25 mg Morphine Sulfate (Morphine) 4 mg SLOW IVP Q15MIN PRN PRN Reason: Breakthrough Pain Last Admin: 10/18/18 13:10 Dose: 4 mg Morphine Sulfate (Ms Contin) 15 mg PO Q12HR [facility] Last Admin: 10/23/18 09:35 Dose: 15 mg Ondansetron HCl (Zofran Odt) 4 mg PO Q6H PRN PRN Reason: Nausea/Vomiting Ondansetron HCl (Zofran) 4 mg IVP Q6H PRN PRN Reason: Nausea/Vomiting Last Admin: 10/20/18 08:46 Dose: 4 mg Oxycodone HCl (Oxycodone Ir) 5 mg PO Q4H PRN PRN Reason: Pain Pantoprazole Sodium (Protonix) 40 mg PO DAILY [facility] Last Admin: 10/23/18 09:36 Dose: 40 mg Polyethylene Glycol (Miralax) 17 gm PO BID [facility] Last Admin: 10/23/18 09:36 Dose: 17 gm
--- NOTE | 2018-10-23 20:15 | PRG ---
DATE OF SERVICE: 10/23/2018 SUBJECTIVE: The patient was seen and examined. OBJECTIVE: VITAL SIGNS: Noted with the following vital signs, afebrile, temperature 97.7, pulse of 97, respiratory rate of 22, blood pressure 117/77. HEENT: Unremarkable. CARDIOVASCULAR SYSTEM: First and second heart sounds were heard. RESPIRATORY SYSTEM: Lungs are clear to auscultation anteriorly with diminished breath sounds at the bases, especially on right side. DIGESTIVE SYSTEM: Revealed somewhat distended abdomen. EXTREMITIES: Showed bilateral 3+ lower extremity edema. The patient seems to be very drowsy and sleepy and with some shortness of breath. LABORATORY INVESTIGATION: Revealed the following: Hemoglobin 8.2. Chemistry significant for creatinine of 2.13 and calcium of 11.1. IMPRESSION: 1. Acute tubular necrosis of multifactorial etiologies including but not limited to the following: a. Severe hypercalcemia with its attendant nephrocalcinosis. b. Hypercalcemia-induced hyperfiltration with its prerenal acute kidney injury component. c. renal mass due to involvement with neoplastic disease. d. Possible superadded component of contrast nephropathy. 2. Hypercalcemia in the context of paraneoplastic phenomenon, improved, but now seems to be rising again. 3. Respiratory distress in the context of pleural effusion, hypervolemia and pulmonary embolism. 4. B-cell lymphoma, query type. 5. Deep venous thrombosis/pulmonary embolism. PLAN: 1. Augmented loop diuretic with zaroxolyn; however, we will monitor the calcium closely given the fact as zaroxolyn is a thiazide. 2. Depending on the trajectory of the calcium, may initiate drug treatment for the hypercalcemia. 3. Renally dose all medications and avoid potentially nephrotoxic agents. 4. Monitor the input and output. No indication at this point for renal replacement therapy. 5. We will monitor the renal function closely, especially when the patient resumes chemotherapy, those were came from the effect of tumor lysis syndrome. 6. Further management will be dependent on the clinical course. Job ID: [id number]
[2018-10-23] MEDS: Ondansetron PF 4 MG/2 ML Vial IVP PRN (20:38)
--- NOTE | 2018-10-23 21:15 | PRG ---
DATE OF SERVICE: 10/23/2018 SUBJECTIVE: The patient is feeling better today overall and has no new complaints. Still complaining of generalized fatigue and weakness and lower extremity swelling. He states his breathing has improved. OBJECTIVE: VITAL SIGNS: Temperature 98.9, saturating 92% on room air, pulse 106, and blood pressure 137/73. GENERAL APPEARANCE: The patient is lying in a recliner and able to sit up without any assistance and is in no acute distress. RESPIRATORY: Nonlabored. There are decreased breath sounds in the right mid to lower lung field, otherwise clear to auscultation. CARDIAC: S1 and S2. Regular rhythm and rate. ABDOMEN: Soft, nondistended, and nontender. EXTREMITIES: 2+ edema bilaterally. NEUROLOGIC: Nonfocal. PSYCHIATRIC: Awake, alert, and oriented x3. LABORATORY DATA: White blood cells 14.8, hemoglobin 8.2, and platelets 430. Sodium 131, potassium 3.8, BUN 37, creatinine 2.13 with a GFR of 33, uric acid 7.4, calcium 11.1, and albumin 3.2. LDH 3731. Pathology results of pleural fluid shows monoclonal B-cells consistent with a B-cell lymphoma, favoring diffuse large B- cell lymphoma or potentially a high-grade follicular lymphoma. ASSESSMENT AND PLAN: A 53-year-old male with B-cell lymphoma, pulmonary embolism, hypercalcemia of malignancy, and acute kidney injury. The patient's acute kidney injury is currently stable, however, without any significant improvement and his hypercalcemia has resolved, but is starting to rise again. Recommend continuing fluid resuscitation for this and the patient may need another dose of Zometa. The patient's pathology has returned showing likely large B-cell lymphoma and treatment will be dependent on further testing. The patient will likely require chemotherapy inpatient for his first cycle. If the patient is found to have a double or triple hit lymphoma he may be a potential candidate for a clinical trial at [facility]. I hope these studies will return in the next 2-3 days. I discussed the pathology results and future plans with the patient and his family. Echocardiogram shows EF of 70 % to 75%, so he is a candidate for Adriamycin, which will be included regardless of the final diagnosis. We will continue to follow this patient with you. Thank you for this consult. Job ID: [id number] [facility]
[2018-10-24] MEDS: Morphine 4 MG/ML VIAL SLOW IVP PRN ×4 (00:12→21:37)
[2018-10-24] MEDS: Furosemide 40 MG/4 ML VIAL SLOW IVP SCH ×2 (06:09→14:06)
[2018-10-24 06:18] LABS: ALT (SGPT) 27 U/L (8-55); AST (SGOT) 45 U/L (5-34); Albumin 3.3 g/dL (3.5-5.0); Alkaline Phosphatase 131 U/L (40-150); Anion Gap 16 mmol/L (10-20); BUN (Urea Nitrogen) 38 mg/dL (8.4-25.7); Bilirubin, Total 0.4 mg/dL (0.2-1.2); Calc. Creatinine Clearance 59 mL/min (70-130); Calcium 11.2 mg/dL (7.8-10.44); Carbon Dioxide 27 mmol/L (22-29); Chloride 92 mmol/L (98-107); Estimated GFR-MDRD 33; Globulin 3.2 g/dL (2.4-3.5); Glucose 80 mg/dL (70-105); Potassium 3.9 mmol/L (3.5-5.1); Protein, Total 6.5 g/dL (6.0-8.3); Sodium 131 mmol/L (136-145)
[2018-10-24 06:56] LABS: Band 4 % (5-11); Eosinophils 1 % (0-10); Hemoglobin 8.6 g/dL (14.0-18.0); Lymphocytes 17 % (21-51); MDiff Complete? YES; Mean Corpuscular HGB CONC 33.5 g/dL (32.0-36.0); Mean Corpuscular Hemoglobin 27.4 pg (27.0-31.0); Mean Corpuscular Volume 81.7 fL (78.0-98.0); Mean Platelet Volume 7.1 fL (7.4-10.4); Monocytes 10 % (0-10); Neutrophil 68 % (42-75); Platelet Count 500 thou/uL (130-400); RBC Distribution Width 13.7 % (11.5-14.5); Red Blood Cell (RBC) Count 3.15 mill/uL (4.70-6.10); White Blood Cell (WBC) Count 15.4 thou/uL (4.8-10.8)
[2018-10-24] MEDS ORDERED: Metolazone 5 MG TAB PO SCH (08:45)
[2018-10-24] MEDS: Apixaban 5 MG TAB PO SCH ×2 (09:31→20:42)
[2018-10-24] MEDS: Morphine ER 15 MG TAB PO SCH ×2 (09:33→20:42)
[2018-10-24] MEDS: Amlodipine 5 MG TAB PO SCH (09:35)
[2018-10-24] MEDS: Metoprolol Tartrate 25 MG TAB PO SCH ×2 (09:35→20:42)
[2018-10-24] MEDS: Polyethylene Glycol 3350 17 GM Packet PO SCH ×2 (09:36→20:43)
[2018-10-24] MEDS: Allopurinol 300 MG TAB PO SCH (09:36)
[2018-10-24] MEDS ORDERED: Morphine IR 10 MG/5 ML UDCUP PO PRN (12:13)
--- NOTE | 2018-10-24 13:33 | PDOC.PN ---
- Subjective Encounter Start Date: 10/24/18 Encounter Start Time: 13:32 Subjective: pr reports breakthrough pain and reports confusion & somnolence w pain -: medications.pain in back and abdomen -: poor appetite.swelling of scrotum,legs .weakness - Objective Resuscitation Status - Order Detail: 10/16/18 05:47 Resuscitation Status Routine Resuscitation Status: FULL: Full Resuscitation MAR Reviewed: Yes Vital Signs & Weight: Vital Signs (12 hours) Temp Pulse BP Pulse Ox 10/24/18 11:22 98.8 F 10/24/18 09:35 104 H 125/74 10/24/18 07:57 92 L 10/24/18 07:05 97.8 F 10/24/18 04:00 98.2 F Weight Admit Weight 206 lb 5.643 oz Weight 232 lb 14.4 oz Most Recent Monitor Data Heart Rate from ECG 108 NIBP 117/76 NIBP BP-Mean 89 Respiration from ECG 18 SpO2 88 I&O: 10/23/18 10/24/18 10/25/18 06:59 06:59 06:59 Intake Total 1110 1320 Output Total 3198 5491 650 [facility]765 -1055 -650 Result Diagrams: 10/24/18 05:16 10/24/18 05:16 Additional Labs: Microbiology 10/18/18 12:30 Thoracentesis fluid Body Fluid Culture - Final Laboratory Tests 10/20/18 10/20/18 10/22/18 03:59 13:17 05:26 Uric Acid Calcium 10.1 10.0 11.0 H Lactate Dehydrogenase 10/23/18 10/23/18 10/23/18 05:05 05:05 05:05 Uric Acid 7.4 H Calcium 11.1 H Lactate Dehydrogenase 3731 H 10/24/18 05:16 Uric Acid Calcium 11.2 H Lactate Dehydrogenase Phys Exam - Physical Examination Constitutional: NAD sleepy,falls asleep during conversation HEENT: PERRLA, moist MMs, sclera anicteric, oral pharynx no lesions Neck: no nodes, no JVD, supple, full ROM Respiratory: no wheezing, no rales, no rhonchi, clear to auscultation bilateral Cardiovascular: RRR, no significant murmur Gastrointestinal: soft, non-tender, no distention, positive bowel sounds Musculoskeletal: pulses present, edema present anasarca Neurological: non-focal, normal sensation, moves all 4 limbs Psychiatric: normal affect, A&O x 3 Dx/Plan (1) Acute pulmonary embolism Code(s): I26.99 - OTHER PULMONARY EMBOLISM WITHOUT ACUTE COR PULMONALE Status : Acute Comment: on eliquis (2) Hypercalcemia of malignancy Code(s): E83.52 - HYPERCALCEMIA Status: Acute Comment: Resolved with treatment.Calcium creeping back up as pt is off of IVF (3) Leucocytosis Code(s): D72.829 - ELEVATED WHITE BLOOD CELL COUNT, UNSPECIFIED Status: Acute (4) Leg DVT (deep venous thromboembolism), acute Code(s): I82.409 - ACUTE EMBOLISM AND THOMBOS UNSP DEEP VN UNSP LOWER EXTREMITY Status: Acute (5) B-cell lymphoma Code(s): C85.10 - UNSPECIFIED B-CELL LYMPHOMA, UNSPECIFIED SITE Status: Acute (6) DEVIKA (acute kidney injury) Code(s): N17.9 - ACUTE KIDNEY FAILURE, UNSPECIFIED Status: Acute Comment: Related to cancer, hypercalcemia and hemodynamic factors due to hypercalcemia induced diuresis (7) Mediastinal adenopathy Code(s): R59.0 - LOCALIZED ENLARGED LYMPH NODES Status: Acute (8) Metastatic cancer Code(s): C79.9 - SECONDARY MALIGNANT NEOPLASM OF UNSPECIFIED SITE Status: Deleted Comment: Stage 4: ? lymphoma or Renal cell carcinoma. (9) Physical deconditioning Code(s): R53.81 - OTHER MALAISE Status: Acute (10) Pleural effusion on right Code(s): J90 - PLEURAL EFFUSION, NOT ELSEWHERE CLASSIFIED Status: Acute Comment: S/p L thoracentesis 10/18/2018.Pl fluid +ve for B cell lymphoma (11) Retroperitoneal lymphadenopathy Code(s): R59.0 - LOCALIZED ENLARGED LYMPH NODES Status: Acute (12) Right kidney mass Code(s): N28.89 - OTHER SPECIFIED DISORDERS OF KIDNEY AND URETER Status: Acute - Plan plan discussed w/ family, PT/OT, incentive spirometry, out of bed/ambulate, DVT proph w/SCDs will request recs from Pain medicine specialist as pain poorly controlled w -: lots of side eefcts of narcotics ,specially w poor renal clerance -: awaiting final flow cytometry and BM Bx results.Rx will be started based on -: results. -: Calcium and renal fx both stable. cont diuresis.zaroxolyn yesterday & today * .may need Zometa if calcium worsened * guarded prognosis Review of Systems - Review of Systems Constitutional: weakness, malaise. negative: fever, chills, sweats, other ENT: negative: Ear Pain, Ear Discharge, Nose Pain, Nose Discharge, Nose Congestion, Mouth Pain, Mouth Swelling, Throat Pain, Throat Swelling, Other Respiratory: negative: Cough, Dry, Shortness of Breath, Hemoptysis, SOB with Excertion, Pleuritic Pain, Sputum, Wheezing Cardiovascular: edema. negative: chest pain, palpitations, orthopnea, paroxysmal nocturnal dyspnea, light headedness, other Gastrointestinal: negative: Nausea, Vomiting, Abdominal Pain, Diarrhea, Constipation, Melena, Hematochezia, Other Genitourinary: negative: Dysuria, Frequency, Incontinence, Hematuria, Retention , Other Musculoskeletal: Back Pain. negative: Neck Pain, Shoulder Pain, Arm Pain, Hand Pain, Leg Pain, Foot Pain, Other Neurological: negative: Weakness, Numbness, Incoordination, Change in Speech, Confusion, Seizures, Other - Medications/Allergies Allergies/Adverse Reactions: Allergies Allergy/AdvReac Type Severity Reaction Status Date / Time No Known Drug Allergies Allergy Verified 10/15/18 21:00 Medications: Current Medications Acetaminophen (Tylenol) 650 mg PO Q4H PRN PRN Reason: Headache/Fever/Mild Pain (1-3) Last Admin: 10/18/18 04:27 Dose: 650 mg Allopurinol (Zyloprim) 300 mg PO DAILY [facility] Last Admin: 10/24/18 09:36 Dose: 300 mg Amlodipine Besylate (Norvasc) 10 mg PO DAILY [facility] Last Admin: 10/24/18 09:35 Dose: 10 mg Apixaban (Eliquis) 10 mg PO BID [facility] Last Admin: 10/24/18 09:31 Dose: 10 mg Bisacodyl (Dulcolax) 10 mg [place] DAILYPRN PRN PRN Reason: Constipation Furosemide (Lasix) 40 mg SLOW IVP 0600,1400 [facility] Last Admin: 10/24/18 06:09 Dose: 40 mg Labetalol HCl (Normodyne) 10 mg SLOW IVP Q4H PRN PRN Reason: Systolic BP > 180 Last Admin: 10/17/18 06:40 Dose: 10 mg Metoprolol Tartrate (Lopressor) 25 mg PO BID [facility] Last Admin: 10/24/18 09:35 Dose: 25 mg Morphine Sulfate (Morphine) 4 mg SLOW IVP Q15MIN PRN PRN Reason: Breakthrough Pain Last Admin: 10/24/18 12:23 Dose: 4 mg Morphine Sulfate (Morphine Ir) 10 mg PO Q4H PRN PRN Reason: Breakthrough Pain Morphine Sulfate (Ms Contin) 15 mg PO QPM [facility] Ondansetron HCl (Zofran Odt) 4 mg PO Q6H PRN PRN Reason: Nausea/Vomiting Ondansetron HCl (Zofran) 4 mg IVP Q6H PRN PRN Reason: Nausea/Vomiting Last Admin: 10/23/18 20:38 Dose: 4 mg Pantoprazole Sodium (Protonix) 40 mg PO DAILY [facility] Last Admin: 10/24/18 09:33 Dose: 40 mg Polyethylene Glycol (Miralax) 17 gm PO BID [facility] Last Admin: 10/24/18 09:36 Dose: 17 gm
--- NOTE | 2018-10-24 16:20 | PRG ---
DATE OF SERVICE: 10/24/2018 Glenn Tapia does well overnight. He still sleepy during the day. His says he sleep in the chair most today, so we will cut out the morning morphine and just use MS Contin in the evening, so he can may be sleep through the night. He can use instant release morphine during the day. He actually might do well with hydrocodone during the day, but I have written for the instant release morphine at this time. His vital signs remained stable. The bone marrow biopsy is still not back yet. Intake and outputs -1055 and his creatinine is remaining stable at 2.13 fortunately. Hopefully, we will have a better classification of his lymphoma here in the next 24 hours, so he can begin treatment. Job ID: [id number]
--- NOTE | 2018-10-24 20:03 | PRG ---
DATE OF SERVICE: 10/24/2018 SUBJECTIVE: The patient was seen and examined complaining about scrotal swelling and leg edema. Otherwise, denies any new complaints. Patient seems to be very sleepy. OBJECTIVE: VITAL SIGNS: Blood pressure 120/74, pulse 99, respiratory rate of 17, O2 saturations are . HEENT: Unremarkable. Moist oral mucosa. No conjunctival injection. No icterus. NECK: Supple. CARDIOVASCULAR SYSTEM: First and second heart sounds were heard. RESPIRATORY SYSTEM: Clear to auscultation. DIGESTIVE SYSTEM: Revealed a benign abdomen. Positive bowel sounds. EXTREMITIES: Show 3 to 4+ bilateral lower extremity edema. SKIN: No new gross rash. LYMPHATICS: No peripheral lymphadenopathy. IMPRESSION: 1. Acute kidney injury in the context of hypercalcemia, contrast nephropathy, and prolonged prerenal state. 2. Anemia. 3. Hypercalcemia of paraneoplastic syndrome. PLAN: 1. We will continue to diurese the patient. 2. The patient to benefit from Zometa renally dose. 3. Continue to monitor the renal function and the calcium level. 4. Further management to be dependent on the clinical course. Job ID: [id number]
[2018-10-25 06:19] LABS: Band 4 % (5-11); Hemoglobin 9.1 g/dL (14.0-18.0); Lymphocytes 13 % (21-51); MDiff Complete? YES; Mean Corpuscular HGB CONC 32.9 g/dL (32.0-36.0); Mean Corpuscular Hemoglobin 27.1 pg (27.0-31.0); Mean Corpuscular Volume 82.4 fL (78.0-98.0); Mean Platelet Volume 6.9 fL (7.4-10.4); Metamyelocyte 2 % (0-0); Monocytes 16 % (0-10); Myelocyte 2 % (0-0); Neutrophil 63 % (42-75); Platelet Count 531 thou/uL (130-400); Platelet Morphology Comment Appears Increased; Red Blood Cell (RBC) Count 3.36 mill/uL (4.70-6.10)
[2018-10-25] MEDS: Furosemide 40 MG/4 ML VIAL SLOW IVP SCH ×2 (06:32→15:04)
[2018-10-25 06:42] LABS: Anion Gap 18 mmol/L (10-20); BUN (Urea Nitrogen) 44 mg/dL (8.4-25.7); Calc. Creatinine Clearance 56 mL/min (70-130); Calcium 11.7 mg/dL (7.8-10.44); Carbon Dioxide 27 mmol/L (22-29); Chloride 90 mmol/L (98-107); Estimated GFR-MDRD 31; Glucose 74 mg/dL (70-105); Potassium 3.9 mmol/L (3.5-5.1); Sodium 131 mmol/L (136-145)
[2018-10-25] MEDS: Amlodipine 5 MG TAB PO SCH (09:13)
[2018-10-25] MEDS: Metoprolol Tartrate 25 MG TAB PO SCH ×2 (09:14→20:13)
[2018-10-25] MEDS: Allopurinol 300 MG TAB PO SCH (09:14)
[2018-10-25] MEDS: Apixaban 5 MG TAB PO SCH ×2 (09:14→20:13)
[2018-10-25] MEDS: Polyethylene Glycol 3350 17 GM Packet PO SCH ×2 (09:15→20:14)
--- NOTE | 2018-10-25 14:06 | PRG ---
DATE OF SERVICE: 10/25/2018 SUBJECTIVE: Mr. Elizabeth is afebrile. We stood him up and weighed him. He weighed 225 pounds. Heart rate is 96, blood pressure 120/73. I noticed that he took in almost 2 L of p.o. fluid yesterday, has to cut back his p.o. liquid intake or at least if he takes in liquids, be sure he is taking on calories, i.e., Ensure. Lungs, heart, and abdomen are essentially unchanged. Bone marrow biopsy showed no marrow involvement of his lymphoma. This still leaves us in the awkward position that we need more tissue to further classify the lymphoma. He remains anticoagulated. His renal insufficiency remains stable with a creatinine of 2.2. His hemoglobin is stable at 9.1 g. IMPRESSION: 1. Thromboembolic disease. 2. Large B-cell lymphoma based on pleural fluid analysis with no marrow involvement. 3. Renal mass, which presumably is related to his lymphoma and not a second tumor. The decision now is to be made where to go for tissue. Transfer to [facility] is also being considered. Job ID: [id number]
[2018-10-25] MEDS: Morphine 4 MG/ML VIAL SLOW IVP PRN (15:41)
[2018-10-25 16:18] VITALS: BP 99/71
--- NOTE | 2018-10-25 16:37 | PDOC.PN ---
- Subjective Encounter Start Date: 10/25/18 Encounter Start Time: 16:36 Subjective: FEELS A LITTLE BETTER -: eating more today & pain better w/o excessive somnolence - Objective Resuscitation Status - Order Detail: 10/16/18 05:47 Resuscitation Status Routine Resuscitation Status: FULL: Full Resuscitation MAR Reviewed: Yes Vital Signs & Weight: Vital Signs (12 hours) Temp Pulse Pulse Pulse BP BP BP 10/25/18 16:00 97.5 F L 10/25/18 15:39 80 85 99/71 119/69 10/25/18 11:05 98.0 F 10/25/18 09:13 104 H 125/74 10/25/18 07:22 98.2 F Pulse Ox 10/25/18 16:00 10/25/18 15:39 95 10/25/18 11:05 10/25/18 09:13 10/25/18 07:22 Weight Admit Weight 206 lb 5.643 oz Weight 232 lb 14.4 oz Most Recent Monitor Data Heart Rate from ECG 97 NIBP 119/69 NIBP BP-Mean 85 Respiration from ECG 16 SpO2 90 I&O: 10/24/18 10/25/18 10/26/18 06:59 06:59 06:59 Intake Total 1320 1616 Output Total 2375 900 Balance -1055 716 Result Diagrams: 10/25/18 04:48 10/25/18 04:48 Additional Labs: Laboratory Tests 10/15/18 10/16/18 10/17/18 19:27 00:32 03:43 G6PD Creatinine 2.96 H 2.85 H 2.55 H 10/17/18 10/19/18 10/20/18 03:43 05:38 03:59 G6PD 328 Creatinine 1.90 H 2.25 H 10/20/18 10/22/18 10/23/18 13:17 05:26 05:05 G6PD Creatinine 2.37 H 2.32 H 2.13 H 10/24/18 10/25/18 05:16 04:48 G6PD Creatinine 2.13 H 2.25 H Phys Exam - Physical Examination Constitutional: NAD sitting up in chair.pale HEENT: PERRLA, moist MMs, sclera anicteric, oral pharynx no lesions Neck: no nodes, no JVD, supple, full ROM Respiratory: no wheezing, no rales, clear to auscultation bilateral Cardiovascular: RRR, no significant murmur Gastrointestinal: soft, non-tender, no distention, positive bowel sounds Musculoskeletal: pulses present, edema present scrotal swelling Neurological: non-focal, normal sensation, moves all 4 limbs Psychiatric: normal affect, A&O x 3 Dx/Plan (1) Acute pulmonary embolism Code(s): I26.99 - OTHER PULMONARY EMBOLISM WITHOUT ACUTE COR PULMONALE Status : Acute Comment: on eliquis (2) Hypercalcemia of malignancy Code(s): E83.52 - HYPERCALCEMIA Status: Acute Comment: Resolved with treatment.Calcium creeping back up as pt is off of IVF (3) DEVIKA (acute kidney injury) Code(s): N17.9 - ACUTE KIDNEY FAILURE, UNSPECIFIED Status: Acute Comment: Related to cancer, hypercalcemia and hemodynamic factors due to hypercalcemia induced diuresis (4) Leucocytosis Code(s): D72.829 - ELEVATED WHITE BLOOD CELL COUNT, UNSPECIFIED Status: Acute (5) Leg DVT (deep venous thromboembolism), acute Code(s): I82.409 - ACUTE EMBOLISM AND THOMBOS UNSP DEEP VN UNSP LOWER EXTREMITY Status: Acute (6) B-cell lymphoma Code(s): C85.10 - UNSPECIFIED B-CELL LYMPHOMA, UNSPECIFIED SITE Status: Acute (7) Mediastinal adenopathy Code(s): R59.0 - LOCALIZED ENLARGED LYMPH NODES Status: Acute (8) Metastatic cancer Code(s): C79.9 - SECONDARY MALIGNANT NEOPLASM OF UNSPECIFIED SITE Status: Deleted Comment: Stage 4: ? lymphoma or Renal cell carcinoma. (9) Physical deconditioning Code(s): R53.81 - OTHER MALAISE Status: Acute (10) Pleural effusion on right Code(s): J90 - PLEURAL EFFUSION, NOT ELSEWHERE CLASSIFIED Status: Acute Comment: S/p L thoracentesis 10/18/2018.Pl fluid +ve for B cell lymphoma (11) Retroperitoneal lymphadenopathy Code(s): R59.0 - LOCALIZED ENLARGED LYMPH NODES Status: Acute (12) Right kidney mass Code(s): N28.89 - OTHER SPECIFIED DISORDERS OF KIDNEY AND URETER Status: Acute - Plan plan discussed w/ family, DVT proph w/SCDs calcium and renal Fx stable.BM Bx pending -: approved for transfer to [facility] for higher level of care as advised by -: oncologist.high risk of decompensation.will Air lift -: comt meds as below -: criticially ill & need tretament for B cell lymphoma lencho.agree w transfer * .discussed w family and they are agreeable to plan Review of Systems - Review of Systems Constitutional: weakness, malaise. negative: fever, chills, sweats, other ENT: negative: Ear Pain, Ear Discharge, Nose Pain, Nose Discharge, Nose Congestion, Mouth Pain, Mouth Swelling, Throat Pain, Throat Swelling, Other Respiratory: negative: Cough, Dry, Shortness of Breath, Hemoptysis, SOB with Excertion, Pleuritic Pain, Sputum, Wheezing Cardiovascular: edema. negative: chest pain, palpitations, orthopnea, paroxysmal nocturnal dyspnea, light headedness, other Gastrointestinal: negative: Nausea, Vomiting, Abdominal Pain, Diarrhea, Constipation, Melena, Hematochezia, Other Genitourinary: negative: Dysuria, Frequency, Incontinence, Hematuria, Retention , Other Musculoskeletal: Back Pain. negative: Neck Pain, Shoulder Pain, Arm Pain, Hand Pain, Leg Pain, Foot Pain, Other Neurological: negative: Weakness, Numbness, Incoordination, Change in Speech, Confusion, Seizures, Other - Medications/Allergies Allergies/Adverse Reactions: Allergies Allergy/AdvReac Type Severity Reaction Status Date / Time No Known Drug Allergies Allergy Verified 10/15/18 21:00 Medications: Current Medications Acetaminophen (Tylenol) 650 mg PO Q4H PRN PRN Reason: Headache/Fever/Mild Pain (1-3) Last Admin: 10/18/18 04:27 Dose: 650 mg Allopurinol (Zyloprim) 300 mg PO DAILY [facility] Last Admin: 10/25/18 09:14 Dose: 300 mg Amlodipine Besylate (Norvasc) 10 mg PO DAILY [facility] Last Admin: 10/25/18 09:13 Dose: 10 mg Apixaban (Eliquis) 10 mg PO BID [facility] Last Admin: 10/25/18 09:14 Dose: 10 mg Bisacodyl (Dulcolax) [address] DAILYPRN PRN PRN Reason: Constipation Furosemide (Lasix) 40 mg SLOW IVP 0600,1400 [facility] Last Admin: 10/25/18 15:04 Dose: 40 mg Labetalol HCl (Normodyne) 10 mg SLOW IVP Q4H PRN PRN Reason: Systolic BP > 180 Last Admin: 10/17/18 06:40 Dose: 10 mg Metoprolol Tartrate (Lopressor) 25 mg PO BID [facility] Last Admin: 10/25/18 09:14 Dose: 25 mg Morphine Sulfate (Morphine) 4 mg SLOW IVP Q15MIN PRN PRN Reason: Breakthrough Pain Last Admin: 10/25/18 15:41 Dose: 4 mg Morphine Sulfate (Morphine Ir) 10 mg PO Q4H PRN PRN Reason: Breakthrough Pain Morphine Sulfate (Ms Contin) 15 mg PO QPM [facility] Last Admin: 10/24/18 20:42 Dose: 15 mg Ondansetron HCl (Zofran Odt) 4 mg PO Q6H PRN PRN Reason: Nausea/Vomiting Ondansetron HCl (Zofran) 4 mg IVP Q6H PRN PRN Reason: Nausea/Vomiting Last Admin: 10/23/18 20:38 Dose: 4 mg Pantoprazole Sodium (Protonix) 40 mg PO DAILY [facility] Last Admin: 10/25/18 09:14 Dose: 40 mg Polyethylene Glycol (Miralax) 17 gm PO BID [facility] Last Admin: 10/25/18 09:15 Dose: 17 gm
[2018-10-25 19:24] VITALS: TEMP 97.7
[2018-10-25] MEDS: Morphine ER 15 MG TAB PO SCH (20:13)
--- NOTE | 2018-10-25 20:13 | PRG ---
DATE OF SERVICE: 10/25/2018 SUBJECTIVE: The patient was seen and examined. No new complaint. OBJECTIVE: VITAL SIGNS: Noted with the following vital signs; blood pressure 121/86, heart rate of 104, O2 saturation of 92% to 98%. HEENT: Unremarkable. CARDIOVASCULAR SYSTEM: First and second heart sounds were heard. RESPIRATORY SYSTEM: Lungs are clear to auscultation. DIGESTIVE SYSTEM: Revealed a benign abdomen. EXTREMITIES: Shows peripheral edema. NEURO: No lateralizing sign. LABORATORY INVESTIGATION: Showed a creatinine of 2.2, calcium of 11.7. IMPRESSION: 1. Hypercalcemia of paraneoplastic syndrome. 2. Acute kidney injury, seems to be stable at creatinine of 2. 3. B-cell lymphoma. 4. Bilateral pulmonary embolism in the context of DVT. PLAN: 1. The patient is in the process of being transferred to [facility]. 2. Further management will be dependent on the clinical course. 3. Outpatient Nephrology followup status post treatment and attention to be paid to the kidney vis-a-vis tumor lysis syndrome when treatment starts. Job ID: [id number]
--- NOTE | 2018-10-26 11:44 | DIS ---
DATE OF ADMISSION: 10/15/2018 DATE OF DISCHARGE: 10/25/2018 DISCHARGE DISPOSITION: Inpatient transfer to [facility]. PRIMARY CARE PHYSICIAN: Briana Clifford MD. CONDITION: At the time of discharge stable, but guarded. DISCHARGE DIAGNOSES: 1. Acute pulmonary embolism and left leg deep venous thrombosis. 2. Hypercalcemia of malignancy. 3. Acute renal injury. 4. B-cell lymphoma isolated from the pleural fluid. 5. Metastatic cancer, suspected lymphoma or renal cell carcinoma. 6. Physical deconditioning. 7. Right-sided pleural effusion, status post thoracentesis, 10/18/2018. 8. Retroperitoneal mediastinal adenopathy. 9. Right-sided kidney mass. 10. Anasarca. DISCHARGE MEDICATIONS: 1. Tylenol as needed every 4 hours. 2. Allopurinol 300 mg daily. 3. Amlodipine 10 mg daily. 4. Eliquis 10 mg p.o. b.i.d. 5. Dulcolax p.r.n. 6. Lasix 40 mg IV b.i.d. 7. Gabapentin 300 mg at bedtime. 8. Metoprolol 25 mg p.o. b.i.d. 9. MS Contin 15 mg at bedtime. 10. Zofran p.r.n. 11. Protonix 40 mg daily. 12. MiraLAX p.o. b.i.d. p.r.n. IN-HOUSE CONSULTATIONS: 1. Nephrology, Dr. Keisha Storm. 2. Oncology, Dr. Vargas and Dr. Portillo. 3. Pulmonary Medicine, Dr. Wilson. 4. Cardiothoracic Surgery, Dr. Sosa. PROCEDURES DONE IN THE HOSPITAL: 1. CT angio of the thorax on 10/15/2018, which shows partially occlusive lobar and segmental pulmonary emboli of the right lower lobe and right middle lobe without evidence of right heart dysfunction with moderate right-sided pleural effusion. Extensive adenopathy in the thorax and upper abdomen and a suspected soft tissue mass involving the superior portal of the right kidney was also seen. 2. CT scan of the brain on 10/15/2018, which was negative for any acute intracranial abnormality. 3. Lower extremity ultrasound of right leg on 10/15/2018, which is negative for any evidence of deep venous thrombosis. 4. MRI of the brain on 10/16/2018, which shows no acute infarction or mass effect. 5. Vascular Doppler ultrasound on 10/16/2018, of left lower extremity, which shows normal findings without any deep venous thrombosis. 6. Lumbar spinal MRI of 10/18/2018, which shows extensive para-aortic and prevertebral lymphadenopathy with large right renal mass without any obvious compression fractures. 7. Thoracentesis. 8. Bone marrow biopsy, CT-guided, on 10/20/2018. 9. Transthoracic echocardiogram on 10/21/2018, which shows EF of 70% to 75%, otherwise unremarkable transthoracic echocardiogram. 10. Ultrasound on 10/20/2018, which shows hypoechoic mass superior pole of right kidney measuring 5.6 cm in maximal dimensions suggestive of neoplastic process. Lymphoma or renal cell carcinoma in the differential. HISTORY OF PRESENTING ILLNESS: Mr. Tapia is a 53-year-old male without any significant past medical history, who presented to the emergency room with complaints of low back pain, progressively getting worse. He was evaluated by Neurosurgery as well as Pain Clinic in the outpatient setting. On the day of presentation, he developed slurring speech, confusion, dizziness, and right lower extremity swelling, so family brought him to the emergency room. In the ER, he was found to have a calcium greater than 17, and BUN of 43, creatinine of 2.96. His troponin was 0.031 with a CK-MB of 1.2, leukocytosis with WBCs of 12.3, and D-dimer elevated at 3.98. A CT angio was done, which showed pulmonary embolism in the right lower lobe and right middle lobe as well as extensive adenopathy and suspected right sided kidney mass. He was diagnosed with toxic metabolic encephalopathy due to hypercalcemia, acute renal insufficiency, and pulmonary embolism as well as demand ischemia among other and was admitted to [facility]. Please see admission history and physical dictated by Dr. Moncada on 10/15/2018. Nephrology and Pulmonary Medicine and Oncology were consulted on admission. HOSPITAL COURSE: The patient was started on heparin drip. He received Zometa and calcitonin, and was started on IV fluids for hypercalcemia. With regard to his hypercalcemia, Nephrology was consulted and Dr. Storm followed the patient along. His calcium improved with IV fluids and was monitored on a daily basis. His calcium improved from greater than 17 to 11.7 by the time of discharge. Unfortunately, fluids had to be stopped because he developed anasarca and was started on diuretics. He also had evidence of acute kidney insufficiency upon presentation at a creatinine of 2.96. It improved to 1.90 with fluids but started to climb up to 2.25 and fluids had to be stopped because of anasarca. He was seen by Pulmonary Medicine for his right-sided pleural effusion and thoracentesis was performed. Fluid was sent for culture as well as cytology. 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 Oncology was consulted and they did a bone marrow biopsy on him. The results were pending at the time of discharge of this patient. An MRI of the brain was also performed, which did not show any metastases or acute infarction. Echocardiogram was also done for staging purposes to start the chemotherapy and it was unremarkable and within normal limits. The patient had hospital course. His pain was not adequately controlled and pain medicine doctors were also consulted. He had elevation of LDH, but normal uric acid. He had no hyperkalemia to suggest tumor lysis. His pleural fluid culture remained negative till date. Eventually, the family requested that he be transferred to [facility] to start some new treatment, which was not available at our facility. Dr. Portillo from Oncology saw the patient and started the transfer process. He was transferred to [facility] last night. At the time of discharge, he is stable, eating little bit better, and his pain is under better control. Further management will depend upon his investigations at [facility]. He was seen and examined prior to discharge. All questions were answered and please see hospitalist progress note from the date of discharge for full details including [id number] interaction. TIME SPENT: Total time spent in the discharge, 38 minutes. Job ID: [id number]
== END 2018-10-25 20:37 | disposition short-term general hospital (02) | DRG 840 ==
LOC: ERS 19:04 → ERHOLD 22:58 → CCU 10-16 01:37 → IMCU/EMU 10-16 14:03
PROVIDERS: ADMIT Internal Medicine; ATTEND Internal Medicine
PROC: 0W993ZX Drainage of Right Pleural Cavity, Percutaneous Approach, Diagnostic (ICD-10-PCS; 2018-10-18)
PROC: 07DR3ZX Extraction of Iliac Bone Marrow, Percutaneous Approach, Diagnostic (ICD-10-PCS; principal; 2018-10-20)
DX: C85.10 Unspecified B-cell lymphoma, unspecified site (principal); G92 Toxic encephalopathy; I26.99 Other pulmonary embolism without acute cor pulmonale; J96.01 Acute respiratory failure with hypoxia; N17.9 Acute kidney failure, unspecified; I24.8 Other forms of acute ischemic heart disease; J90 Pleural effusion, not elsewhere classified; I82.409 Acute embolism and thrombosis of unspecified deep veins of unspecified lower extremity; G93.1 Anoxic brain damage, not elsewhere classified; C79.9 Secondary malignant neoplasm of unspecified site; E22.2 Syndrome of inappropriate secretion of antidiuretic hormone; R00.0 Tachycardia, unspecified; E86.0 Dehydration; D64.9 Anemia, unspecified; E66.9 Obesity, unspecified; Z68.33 Body mass index [BMI] 33.0-33.9, adult; K59.00 Constipation, unspecified; E83.52 Hypercalcemia; R16.1 Splenomegaly, not elsewhere classified; N28.89 Other specified disorders of kidney and ureter; R59.0 Localized enlarged lymph nodes; R60.1 Generalized edema
CPT/HCPCS: 20225; 36415; 70450; 70551; 71045; 71275; 72158; 76775; 77012; 80048; 80053; 80069; 81001; 82150; 82306; 82550; 82553; 82570; 82945; 82955; 83615; 83690; 83880; 83935; 83970; 83986; 84156; 84157; 84300; 84484; 84550; 85007; 85014; 85018; 85025; 85027; 85041; 85049; 85060; 85097; 85379; 85610; 85730; 87070; 87205; 88112; 88184; 88237; 88305; 88311; 88313; 88341; 88342; 88360; 89051; 90471; 90686; 93005; 93306; 96361; 96365; 96366; 96368; 96372; 96375; 99292; A9577; G0008; J0630; J1644; J1940; J2001; J2250; J2270; J2405; J3010; J3489; J7050; Q9966

== ENCOUNTER 2018-12-22 08:46 | Day surgery (SDC) | payer BC ==
[2018-12-22] MEDS ORDERED: Sodium Chloride 0.9% 40 ML ONE (09:51)
[2018-12-22] MEDS ORDERED: Acetaminophen 500 MG TAB PO SCH (10:15)
[2018-12-22] MEDS ORDERED: diphenhydrAMINE 25 MG CAP PO SCH (10:15)
[2018-12-22 13:38] VITALS: BP 108/57; TEMP 98
[2018-12-22] MEDS ORDERED: Sodium Chloride 0.9% 20 ML ONE (15:35)
== END 2018-12-22 16:46 | disposition home or self-care (01) ==
LOC: ONC/OP 08:46
PROVIDERS: ATTEND Internal Medicine Hematology & Oncology
PROC: 30233N1 Transfusion of Nonautologous Red Blood Cells into Peripheral Vein, Percutaneous Approach (ICD-10-PCS; principal; 2018-12-22)
DX: D64.9 Anemia, unspecified (principal); D69.6 Thrombocytopenia, unspecified
CPT/HCPCS: 36430; 80053; 82248; 83615; 84100; 84550; 86850; 86900; 86901; J1642; P9016; Q0163

== ENCOUNTER 2019-01-16 09:10 | Day surgery (SDC) | payer BC ==
[2019-01-16] MEDS ORDERED: Sodium Chloride 0.9% 20 ML ONE (09:35)
[2019-01-16] MEDS ORDERED: diphenhydrAMINE 25 MG CAP PO SCH (09:45)
[2019-01-16] MEDS ORDERED: Acetaminophen 500 MG TAB PO SCH (09:45)
[2019-01-16 13:47] LABS: Hemoglobin 8.3 g/dL (14.0-18.0)
[2019-01-16 14:41] VITALS: TEMP 97.6
[2019-01-16 15:42] VITALS: BP 118/65
== END 2019-01-16 15:49 | disposition home or self-care (01) ==
LOC: ONC/OP 09:10
PROVIDERS: ATTEND Internal Medicine Hematology & Oncology
PROC: 30233N1 Transfusion of Nonautologous Red Blood Cells into Peripheral Vein, Percutaneous Approach (ICD-10-PCS; principal; 2019-01-16)
DX: D64.9 Anemia, unspecified (principal); D69.6 Thrombocytopenia, unspecified
CPT/HCPCS: 36415; 36430; 36591; 80053; 82248; 83615; 84100; 84550; 85014; 85018; 86850; 86900; 86901; 96523; J1642; P9016; Q0163

== ENCOUNTER → 2019-02-07 | Day surgery (SDC) | payer BC ==
[2019-02-07 13:29] LABS: Hemoglobin 7.7 g/dL (14.0-18.0)
== END ==
LOC: ONC/OP 08:52
PROVIDERS: ATTEND Internal Medicine Hematology & Oncology
DX: D64.9 Anemia, unspecified (principal); D69.59 Other secondary thrombocytopenia
CPT/HCPCS: 36430; 85014; 85018; 86850; 86900; 86901; J1642; P9016

== ENCOUNTER 2024-01-04 08:50 | Day surgery (SDC) | payer BC ==
[2023-12-30 16:51] VITALS: BMI 35.5
[2024-01-04] MEDS ORDERED: Oxymetazoline HCl 0.05% (30 ML BOT) ONE ×2 (11:54→12:22)
[2024-01-04] MEDS ORDERED: Ketorolac Tromethamine 30 MG (1 mL) VIAL ONE (11:57)
[2024-01-04] MEDS ORDERED: Ondansetron PF 4 MG/2 ML Vial ONE (11:57)
[2024-01-04] MEDS ORDERED: Lidocaine 1% PF 5 ML VIAL ONE (11:57)
[2024-01-04] MEDS ORDERED: PROPOFOL 0 ML ONE (11:57)
[2024-01-04] MEDS ORDERED: Dexamethasone 20 MG/5 ML VIAL ONE (11:57)
[2024-01-04] MEDS ORDERED: Dexmedetomidine 200 MCG/2 ML VIAL ONE (11:57)
[2024-01-04] MEDS ORDERED: fentaNYL PF 100 MCG/2 ML SYRINGE ONE ×2 (11:57→12:55)
[2024-01-04] MEDS ORDERED: Bacitracin Zinc Ointment 30 gm TUBE ONE (12:22)
[2024-01-04] MEDS ORDERED: EPINEPHrine 1 MG/ML VIAL ONE (12:22)
[2024-01-04] MEDS ORDERED: Lidocaine 1% (PF) 30 ML VIAL ONE (12:22)
[2024-01-04] MEDS ORDERED: Rocuronium Bromide 10 MG/ML (10ML VIAL) ONE (12:38)
[2024-01-04] MEDS ORDERED: PHENYLEPHRINE-NS 100 MCG/ML 10 ML SYRINGE ONE (12:38)
[2024-01-04] MEDS ORDERED: SUGAMMADEX SODIUM 200 MG/2 ML VIAL ONE (12:56)
== END 2024-01-04 15:35 | disposition home or self-care (01) ==
LOC: SDC 08:50
PROVIDERS: ATTEND Otolaryngology Plastic Surgery within the Head & Neck
PROC: 09TS8ZZ Resection of Right Frontal Sinus, Via Natural or Artificial Opening Endoscopic (ICD-10-PCS; principal; 2024-01-04)
PROC: 09TT8ZZ Resection of Left Frontal Sinus, Via Natural or Artificial Opening Endoscopic (ICD-10-PCS; principal; 2024-01-04)
PROC: 09TU8ZZ Resection of Right Ethmoid Sinus, Via Natural or Artificial Opening Endoscopic (ICD-10-PCS; principal; 2024-01-04)
PROC: 09TR8ZZ Resection of Left Maxillary Sinus, Via Natural or Artificial Opening Endoscopic (ICD-10-PCS; principal; 2024-01-04)
PROC: 09TV8ZZ Resection of Left Ethmoid Sinus, Via Natural or Artificial Opening Endoscopic (ICD-10-PCS; principal; 2024-01-04)
PROC: 09TW8ZZ Resection of Right Sphenoid Sinus, Via Natural or Artificial Opening Endoscopic (ICD-10-PCS; principal; 2024-01-04)
PROC: 09TX8ZZ Resection of Left Sphenoid Sinus, Via Natural or Artificial Opening Endoscopic (ICD-10-PCS; principal; 2024-01-04)
PROC: 09TL8ZZ Resection of Nasal Turbinate, Via Natural or Artificial Opening Endoscopic (ICD-10-PCS; principal; 2024-01-04)
PROC: 09TQ8ZZ Resection of Right Maxillary Sinus, Via Natural or Artificial Opening Endoscopic (ICD-10-PCS; principal; 2024-01-04)
DX: J32.4 Chronic pansinusitis (principal); J34.3 Hypertrophy of nasal turbinates; J33.0 Polyp of nasal cavity; Z88.8 Allergy status to other drugs, medicaments and biological substances; J30.9 Allergic rhinitis, unspecified
CPT/HCPCS: 88305; 88312; J0171; J1100; J1885; J2001; J2405; J2704